=== PATIENT | female | born 1950 | race Caucasian/White ===

== ENCOUNTER 2020-06-22 | Outpatient (REF) | payer MEDICARE, SELFPAY | END 2020-06-22 00:01 | disposition home or self-care (01) | LOC: HO.VC | PROVIDERS: Visit Provider Internal Medicine | DX: Z23 Encounter for immunization (principal) | CPT/HCPCS: 0011A ==

== ENCOUNTER 2020-07-19 | Outpatient (REF) | payer MEDICARE, SELFPAY | END 2020-07-19 00:01 | disposition home or self-care (01) | LOC: HO.VC | PROVIDERS: Visit Provider Internal Medicine | DX: Z23 Encounter for immunization (principal) | CPT/HCPCS: 0012A ==

== ENCOUNTER → 2021-04-10 14:37 | Outpatient (BNVA) | payer MEDICARE, SELFPAY | PROVIDERS: PCP Internal Medicine; Visit Provider Hospitalist | DX: J47.1 Bronchiectasis with (acute) exacerbation (principal); J45.41 Moderate persistent asthma with (acute) exacerbation; J31.0 Chronic rhinitis | CPT/HCPCS: 99212 ==

== ENCOUNTER 2021-07-04 12:54 | Outpatient (REF) | payer MEDICARE, SELFPAY | END 2021-07-04 12:55 | disposition home or self-care (01) | LOC: HO.RESP 12:54 | PROVIDERS: PCP Internal Medicine; Visit Provider Hospitalist | DX: J44.9 Chronic obstructive pulmonary disease, unspecified (principal) | CPT/HCPCS: 94060; 94727; 94729; 99212 ==

== ENCOUNTER → 2021-11-28 14:22 | Outpatient (BNVA) | payer MEDICARE, SELFPAY | PROVIDERS: PCP Internal Medicine; Visit Provider Hospitalist | DX: J47.1 Bronchiectasis with (acute) exacerbation (principal); J45.41 Moderate persistent asthma with (acute) exacerbation; J31.0 Chronic rhinitis; Z79.899 Other long term (current) drug therapy | CPT/HCPCS: 99212 ==

== ENCOUNTER → 2022-02-12 09:21 | Outpatient (BNVA) | payer MEDICARE, SELFPAY | PROVIDERS: PCP Internal Medicine; Visit Provider Hospitalist | DX: J45.41 Moderate persistent asthma with (acute) exacerbation (principal); J47.1 Bronchiectasis with (acute) exacerbation; J31.0 Chronic rhinitis | CPT/HCPCS: 99212 ==

== ENCOUNTER → 2022-11-06 10:43 | Outpatient (BNVA) | payer MEDICARE, SELFPAY | PROVIDERS: PCP Internal Medicine; Visit Provider Hospitalist | DX: J47.1 Bronchiectasis with (acute) exacerbation (principal); J45.41 Moderate persistent asthma with (acute) exacerbation; J31.0 Chronic rhinitis | CPT/HCPCS: 99212 ==

== ENCOUNTER 2023-02-14 15:10 | Outpatient (AMB) | payer MEDICARE, SELFPAY ==
--- NOTE | 2023-02-14 15:13 | A.OFFVIS_ITS ---
Intake Vital Signs 02/14/23 15:14 Weight 117 lb 15.157 oz BP 108/60 Blood Pressure Location Lt brachial Position Sitting Pulse 98 Pulse Source Pulse Oximeter Pulse Oximetry (%) 99 Oxygen Delivery Method Room Air Intake Visit Reasons: chest congestion Allergies amoxicillin Allergy (Severe, Verified 02/14/23 15:17) C.DIFF sulfamethoxazole [Bactrim] Allergy (Severe, Verified 02/14/23 15:17) Shakin trimethoprim [Bactrim] Allergy (Severe, Verified 02/14/23 15:17) Shaking oxycodone Allergy (Intermediate, Verified 02/14/23 15:17) Loopy Medication List - Last Reconciled 02/14/23 by Faiza Fox LPN albuterol sulfate 2.5 mg (3 mL) inhalation Q4-6H PRN 30 days budesonide 0.5 mg (2 mL) inhalation BID 30 days budesonide-formoterol 160-4.5 mcg/actuation (Symbicort) inhalation cetirizine (Zyrtec) 10 mg PO DAILY PRN doxycycline monohydrate 100 mg PO BID 14 days levalbuterol HCl 1.25 mg (3 mL) inhalation BID 30 days levalbuterol tartrate 45 mcg/actuation 2 puffs inhalation Q4-6H nebulizers As directed omeprazole 20 mg PO DAILY prednisone PO daily; Take 2 tabs daily x 5 days, then 1 tablet daily x 5 days 10 days sodium chloride 3% 4 mL inhalation BID 30 days HPI HPI Comments History of Present Illness Details The patient is a 72-year-old woman with a known history of asthma, gastroesophageal reflux disease not complaining worsening cough for the last c ouple weeks. apparently back in the summer she did develop chest discomfort. She was taken to an urgent care where she did have a chest x-ray. and also an EKG. Based on her symptoms she was transferred over to [facility] ED. She was ruled out the patient did well afterwards. Her symptoms subsided she was go back to her baseline. She does take maintenance respiratory medications. She did well until recently when she started developing worsening cough. Congested along with chest tightness. Moderate severity. She continue using her Symbicort but started using her nebulizer therapy at least once a day. His provider partial resolution of the symptoms. Her symptoms were worse at nighttime with heaviness and difficulty sleeping with her cough. The cough she describes is congested and productive. The phlegm is white to off-white in color. Denies any blood. She does get relief from the nebulizer. She also has Mucinex at home. On exam her lungs appeared to some course and prolonged expiratory phase. This is throughout. No clinical evidence of pneumonia at this time. The patient be treated with antibiotics and prednisone and also with [id number] Mucinex. If the patient is not better in the coming days patient is to get blood work, x-ray and also will request a sputum culture. Once the patient is better she will return to the office and undergo pulmonary function studies. 07/04/2021 the patient is here for pulmonary follow-up visit. The patient is feeling better since I last saw her back in March when she was ill with a asthma exacerbation/ Bronchiectasis exacerbation. She did require antibiotics and prednisone. she was supposed to undergo blood work but she did not have them. Patient also had a sputum culture that she could send if she was to productive but she did have 2. she continues with respiratory therapy which includes Symbicort. She has been noticing some difficulties expectorating. She feels this possibly the dryness of her home. We did talk about the importance of pulmonary hygiene and therefore will be reasonable to add hypertonic saline to her regimen prior to the Acapella valve in order to improve her br onchopulmonary clearance. In the meantime she did have pulmonary function studies today that we personally reviewed. It appears that she does have a reversible obstruction consistent with her diagnosis of asthma. When compared to 2019 her FEV1 FVC a very similar. Total lung capacity is trending elevated which could be secondary to a trend of hyperinflation due to the disease. More importantly she did mention some substernal chest pressure buildup. She has had some gases and burping related to it. She did take times and did improve her symptoms. She does take omeprazole 20 mg. I did ask her about her cardiac workup. Apparently a month ago she did have an EKG and she also had an event monitor or Holter monitor. She was given be referred to Cardiology. At this point she does not have the substernal chest discomfort. If she does get discomfort again she needs to seek medical advice just encases the heart. Explained to the patient that is very difficult to differentiate sometimes between the heart in the GI tract. Therefore is reasonable to increase her PPI continue reflux diet. Will be also very reasonable to perform a barium swallow. The patient also should have that cardiology evaluation. 11/28/2021 the patient is here for a pulmonary follow-up visit. Since we last spoke the patient developed COVID-19. The patient after recovering for COVID-19 continue to have significant respiratory complaints. She did require a course of doxycycline and then afterwards was placed on prednisone. She took 20 mg prednisone because higher than that makes it hard for her to breathe. The patient felt a little better initially but then she worsen. She did go to an urgent care where she was tested for COVID again and she tested negative. Her exam was relatively unremarkable. Apparently she did have a chest x-ray that was reassuring. She then was able to follow-up with cardiology regarding her palpitations and ectopy and was found to be relatively stable. No further interventions took place. She was reassured that she felt better. However today again she started feeling worse with increasing shortness of breath in addition to chest congestion and wheezing. Since she had been on the nebulized therapy 2 to 3 times a day she has Doppler Symbicort. Explained to her that Symbicort is very crucial because of the inhaled steroids. It is likely that his symptoms worsen because of the discontinuation of the prednisone and then followed by the fact that she was not using her inhaled steroids. Therefore will go ahead and place her on budesonide via nebulizer since she feels like the nebulizer is more effective for her anyway. She will perform the nebulizer with budesonide twice a day in continue with the Xopenex as well. I am hopeful that the addition of the budesonide will give her some relief. The patient already completed antibiotics and I do not believe she needs additional antibiotics at this time. If she does we can consider azithromycin as a good medication for bronchiectasis and working as an anti-inflammatory agent as well. 02/12/2022 the patient is here for a pulm onary follow-up visit. Overall she is doing a lot better. She is back to her baseline. She stop the nebulized therapies and she is back on the Symbicort. Her cough is decreased. Although she still has productive cough on a regular basis. She has not had any more imaging studies since the winter. Her chest x-ray looked well. The patient still has shortness of breath and chest tightness at times. She does have wheezing on examination. We did talk about adding a long-acting muscarinic antagonist to the Symbicort but the patient would like to hold off at this time. She does continue with her allergy medicine. Will plan to follow-up in 6 months with PFTs. If the patient has worsening symptoms she will call and I will send of the Spiriva. 11/06/2022 the patient is here for a pulm onary follow-up visit. The patient overall is been doing well. She continues on the Symbicort. She has not required her rescue inhaler. She has not required her chest PT because she is not having any significant congestion. She is practicing [facility] medicine and she feels that that acupressure is helping her breathing and also helping with her other conditions. The patient was supposed to have pulmonary function studies but she was sick when she wears scheduled and then did not having. At this time the patient clinically is doing well and therefore will just do a spirometry her during her next visit. We do not have a chest x-ray available so therefore will have her get an x-ray before her follow-up in the spring. If the patient has any issues during the fall we were season she is to call for an appointment. 02/14/2023 the patient is here for a sick visit. Apparently she started developing worsening respiratory symptoms last week. Started having worsening cough in shortness of breath chest tightness. She started using her nebulizer with budesonide and then she also call the office. We started her on doxycycline. The patient started feeling much better after a couple days. She felt like she was back to her baseline. However, suddenly she started noticing again that she was getting more shortness of breath again and more chest congestion. She feels more congestion in the left lung. Also appreciated more rhonchi in chest congestion of the left hemithorax. The patient did go for an a chest x-ray which I personally reviewed. Has not been finally ready yet. She does have some slight blunting of the left recess. But just minimal disease. If anything it appears to be more of her bronchiectasis exacerbating. She has been using her nebulizer which has been helpful. Will go ahead and start her on a small dose of prednisone. If she notices that her sputum changes in color frequency and consistency while on the doxycycline then she can also switch over to Augmentin. Unfortunately she is had C diff in the past and therefore is always a risk. She has been on probiotics. Therefore, she would only go on the Augmentin only if she is feeling like she is getting worse. She can always call the office for further recommendations. While wait the final read if there is any other findings on the x-ray I will let her know. [facility] Medical History (Updated 02/08/23 @ 14:48 by Israel Miranda MD) Asthma-COPD overlap syndrome Chest discomfort GERD (gastroesophageal reflux disease) Chronic rhinitis Asthma Bronchiectasis Social History (Updated 04/10/21 @ 14:51 by NETTE Casarez) Patient Tobacco Use Status: Never used Tobacco Review of Systems Const Denies fever(s) and Denies night sweats ENT Denies change in voice, Denies lip swelling, Denies mouth pain, Reports nasal congestion, Reports nasal discharge and Denies tongue swelling Card Denies chest pain and Reports dyspnea on exertion Resp Reports change in phlegm color, Reports chest congestion, Reports cough, Denies hemoptysis, Denies excessive phlegm production, Reports dyspnea on exertion and Reports wheezing GI Denies belching, Reports dyspepsia and Reports heartburn Musc Denies no additional complaints Neuro Denies Neuro-related abnormal movements Psych Denies no additional complaints and Reports other (greiving) Yassine/Lymph Denies easy bleeding and Denies lymphadenopathy Aller/Immun Denies lip swelling, Denies tongue swelling and Reports wheezing Physical Exam Vital Signs: Last Vital Signs Pulse 98 02/14/23 15:14 BP 108/60 02/14/23 15:14 Pulse Ox 99 02/14/23 15:14 Oxygen Delivery Method Room Air 02/14/23 15:14 Const General: alert Neck Neck: Yes normal visual inspection, Yes full ROM and Yes no lymphadenopathy Chest Chest palpation & inspection: normal inspection of the chest Resp Effort & Inspection: prolonged expiratory phase Auscultation: rhonchi, wheezes and diminished lung sounds Cardio Rate: regular rate Rhythm: regular rhythm Heart sounds: S1 normal heart sound present and S2 normal heart sound present GI Palpation (GI): Soft to palpation and nontender Auscultation: normal bowel sounds Skin General skin exam: rashes and/or lesions noted Assessment & Plan Assessment & Plan (1) Bronchiectasis: Code(s): J47.9 - Bronchiectasis, uncomplicated Qualifiers: Bronchiectasis type: with acute exacerbation Qualified Code(s): J47.1 - Bronchiectasis with (acute) exacerbation (2) Asthma: Code(s): J45.909 - Unspecified asthma, uncomplicated Qualifiers: Asthma complication type: with acute exacerbation Asthma persistence: persistent Asthma severity: moderate Qualified Code(s): J45.41 - Moderate persistent asthma with (acute) exacerbation (3) Chronic rhinitis: Code(s): J31.0 - Chronic rhinitis Plan Continue Doxycycline, if no better switch to Augmentin. 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
[2023-02-14 15:14] VITALS: BP 108/60; PULSE 98; O2SAT 99
== END 2023-02-14 16:05 | disposition home or self-care (01) ==
PROVIDERS: PCP Internal Medicine; Visit Provider Hospitalist
DX: J47.1 Bronchiectasis with (acute) exacerbation (principal); J45.41 Moderate persistent asthma with (acute) exacerbation; J31.0 Chronic rhinitis
CPT/HCPCS: 99214

== ENCOUNTER 2023-02-14 15:10 | Outpatient (REF) | payer MEDICARE, SELFPAY ==
--- NOTE | ~2023-02-14 | XR_ITS ---
EXAMINATION: XR CHEST 2 VIEWS CLINICAL INFORMATION: Bronchiectasis with acute exacerbation. COMPARISON: Report of chest radiographs dated 02/01/2015. TECHNIQUE: Frontal and lateral views of the chest were obtained. FINDINGS: The heart, great vessels, pulmonary vasculature and mediastinum are normal. The lungs show no focal infiltrate, effusion or pneumothorax. There is biapical pleural and parenchymal scarring. There is no acute osseous abnormality. XR/XR chest 2V IMPRESSION: No active cardiopulmonary disease.
== END 2023-02-14 15:11 | disposition home or self-care (01) ==
LOC: HO.XRAY 15:10
PROVIDERS: PCP Internal Medicine; Visit Provider Hospitalist
DX: J47.1 Bronchiectasis with (acute) exacerbation (principal); J45.41 Moderate persistent asthma with (acute) exacerbation; J31.0 Chronic rhinitis
CPT/HCPCS: 71046; 99212

== ENCOUNTER 2023-07-24 10:56 | Outpatient (AMB) | payer MEDICARE, SELFPAY ==
[2023-07-24 11:14] VITALS: BP 128/60; PULSE 86; O2SAT 99; BMI 18.9
--- NOTE | 2023-07-24 11:14 | MHC.OFFVIS ---
Intake Vital Signs 07/24/23 11:14 Height 5 ft 6 in Weight 117 lb BMI 18.9 BP 128/60 Blood Pressure Location Lt brachial Position Sitting Pulse 86 Pulse Source Pulse Oximeter Pulse Oximetry (%) 99 Oxygen Delivery Method Room Air Intake Visit Reasons: COPD Electro Tech Required: No Allergies amoxicillin Allergy (Severe, Verified 07/24/23 11:16) C.DIFF sulfamethoxazole [Bactrim] Allergy (Severe, Verified 07/24/23 11:16) Shakin trimethoprim [Bactrim] Allergy (Severe, Verified 07/24/23 11:16) Shaking oxycodone Allergy (Intermediate, Verified 07/24/23 11:16) Loopy HPI HPI Comments History of Present Illness Details The patient is a 72-year-old woman with a known history of asthma, gastroesophageal reflux disease not complaining worsening cough for the last couple weeks. apparently back in the summer she did develop chest discomfort. She was taken to an urgent care where she did have a chest x-ray. and also an EKG. Based on her symptoms she was transferred over to [facility] ED. She was ruled out the patient did well afterwards. Her symptoms subsided she was go back to her baseline. She does take maintenance respiratory medications. She did well until recently when she started developing worsening cough. Congested along with chest tightness. Moderate severity. She continue using her Symbicort but started using her nebulizer therapy at least once a day. His provider partial resolution of the symptoms. Her symptoms were worse at nighttime with heaviness and difficulty sleeping with her cough. The cough she describes is congested and productive. The phlegm is white to off-white in color. Denies any blood. She does get relief from the nebulizer. She also has Mucinex at home. On exam her lungs appeared to some course and prolonged expiratory phase. This is throughout. No clinical evidence of pneumonia at this time. The patient be treated with antibiotics and prednisone and also with [id number] Mucinex. If the patient is not better in the coming days patient is to get blood work, x-ray and also will request a sputum culture. Once the patient is better she will return to the office and undergo pulmonary function studies. 07/04/2021 the patient is here for pulmonary follow-up visit. The patient is feeling better since I last saw her back in March when she was ill with a asthma exacerbation/ Bronchiectasis exacerbation. She did require antibiotics and prednisone. she was supposed to undergo blood work but she did not have them. Patient also had a sputum culture that she could send if she was to productive but she did have 2. she continues with respiratory therapy which includes Symbicort. She has been noticing some difficulties expectorating. She feels this possibly the dryness of her home. We did talk about the importance of pulmonary hygiene and therefore will be reasonable to add hypertonic saline to her regimen prior to the Acapella valve in order to improve her bronchopulmonary clearance. In the meantime she did have pulmonary function studies today that we personally reviewed. It appears that she does have a reversible obstruction consistent with her diagnosis of asthma. When compared to 2019 her FEV1 FVC a very similar. Total lung capacity is trending elevated which could be secondary to a trend of hyperinflation due to the disease. More importantly she did mention some substernal chest pressure buildup. She has had some gases and burping related to it. She did take times and did improve her symptoms. She does take omeprazole 20 mg. I did ask her about her cardiac workup. Apparently a month ago she did have an EKG and she also had an event monitor or Holter monitor. She was given be referred to Cardiology. At this point she does not have the substernal chest discomfort. If she does get discomfort again she needs to seek medical advice just encases the heart. Explained to the patient that is very difficult to differentiate sometimes between the heart in the GI tract. Therefore is reasonable to increase her PPI continue reflux diet. Will be also very reasonable to perform a barium swallow. The patient also should have that cardiology evaluation. 11/28/2021 the patient is here for a pulmonary follow-up visit. Since we last spoke the patient developed COVID-19. The patient after recovering for COVID-19 continue to have significant respiratory complaints. She did require a course of doxycycline and then afterwards was placed on prednisone. She took 20 mg prednisone because higher than that makes it hard for her to breathe. The patient felt a little better initially but then she worsen. She did go to an urgent care where she was tested for COVID again and she tested negative. Her exam was relatively unremarkable. Apparently she did have a chest x-ray that was reassuring. She then was able to follow-up with cardiology regarding her palpitations and ectopy and was found to be relatively stable. No further interventions took place. She was reassured that she felt better. However today again she started feeling worse with increasing shortness of breath in addition to chest congestion and wheezing. Since she had been on the nebulized therapy 2 to 3 times a day she has Doppler Symbicort. Explained to her that Symbicort is very crucial because of the inhaled steroids. It is likely that his symptoms worsen because of the discontinuation of the prednisone and then followed by the fact that she was not using her inhaled steroids. Therefore will go ahead and place her on budesonide via nebulizer since she feels like the nebulizer is more effective for her anyway. She will perform the nebulizer with budesonide twice a day in continue with the Xopenex as well. I am hopeful that the addition of the budesonide will give her some relief. The patient already completed antibiotics and I do not believe she needs additional antibiotics at this time. If she does we can consider azithromycin as a good medication for bronchiectasis and working as an anti-inflammatory agent as well. 02/12/2022 the patient is here for a pulmonary follow-up visit. Overall she is doing a lot better. She is back to her baseline. She stop the nebulized therapies and she is back on the Symbicort. Her cough is decreased. Although she still has productive cough on a regular basis. She has not had any more imaging studies since the winter. Her chest x-ray looked well. The patient still has shortness of breath and chest tightness at times. She does have wheezing on examination. We did talk about adding a long-acting muscarinic antagonist to the Symbicort but the patient would like to hold off at this time. She does continue with her allergy medicine. Will plan to follow-up in 6 months with PFTs. If the patient has worsening symptoms she will call and I will send of the Spiriva. 11/06/2022 the patient is here for a pulmonary follow-up visit. The patient overall is been doing well. She continues on the Symbicort. She has not required her rescue inhaler. She has not required her chest PT because she is not having any significant congestion. She is practicing [employer] and she feels that that acupressure is helping her breathing and also helping with her other conditions. The patient was supposed to have pulmonary function studies but she was sick when she wears scheduled and then did not having. At this time the patient clinically is doing well and therefore will just do a spirometry her during her next visit. We do not have a chest x-ray available so therefore will have her get an x-ray before her follow-up in the spring. If the patient has any issues during the fall we were season she is to call for an appointment. 02/14/2023 the patient is here for a sick visit. Apparently she started developing worsening respiratory symptoms last week. Started having worsening cough in shortness of breath chest tightness. She started using her nebulizer with budesonide and then she also call the office. We started her on doxycycline. The patient started feeling much better after a couple days. She felt like she was back to her baseline. However, suddenly she started noticing again that she was getting more shortness of breath again and more chest congestion. She feels more congestion in the left lung. Also appreciated more rhonchi in chest congestion of the left hemithorax. The patient did go for an a chest x-ray which I personally reviewed. Has not been finally ready yet. She does have some slight blunting of the left recess. But just minimal disease. If anything it appears to be more of her bronchiectasis exacerbating. She has been using her nebulizer which has been helpful. Will go ahead and start her on a small dose of prednisone. If she notices that her sputum changes in color frequency and consistency while on the doxycycline then she can also switch over to Augmentin. Unfortunately she is had C diff in the past and therefore is always a risk. She has been on probiotics. Therefore, she would only go on the Augmentin only if she is feeling like she is getting worse. She can always call the office for further recommendations. While wait the final read if there is any other findings on the x-ray I will let her know. 07/24/2023 the patient is here for a pulmonary follow-up visit. The patient overall has been doing well. She has using a mask whenever she goes to avoid any viral illnesses that tend to trigger her asthma and bronchiectasis. She continues to use her Symbicort that he has been very effective in beneficial to her. The patient has tried multiple inhalers in the past included powdered inhalers such as Breo and she did not tolerate the powder. Now, Symbicort is no longer being covered. Therefore will switch her to Dulera based on the fact that is still an HFA and should be very similar to the Symbicort. However, I do not recommend she switch over to a powdered inhalers and she has not tolerated them in the past and resulted in adverse symptoms. So therefore will have to send the Dulera hopefully gets approved if not will have to perform a PA. the patient has not had any significant symptoms. We did look at her x-ray that she had back in January 2023 without any acute disease although she does have some hyperinflation of the lungs. She does walk regularly. We did talk about personally breathing and just breathing exercises to help her with the air trapping hyperdynamic changes. The patient will return in 6-8 months. If she has any worsening symptoms she will call for an earlier assessment. No x-rays or PFTs at this time. FORMERLY [facility], [facility] Medical History (Updated 02/08/23 @ 14:48 by Israel Miranda MD) Asthma-COPD overlap syndrome Chest discomfort GERD (gastroesophageal reflux disease) Chronic rhinitis Asthma Bronchiectasis Social History (Updated 04/10/21 @ 14:51 by Sarah Juan Karen) Patient Tobacco Use Status: Never used Tobacco Review of Systems Const Denies fever(s) and Denies night sweats ENT Denies change in voice, Denies lip swelling, Denies mouth pain, Reports nasal congestion, Reports nasal discharge and Denies tongue swelling Card Denies chest pain and Reports dyspnea on exertion Resp Denies change in phlegm color, Denies chest congestion, Reports cough, Denies hemoptysis, Denies excessive phlegm production and Reports dyspnea on exertion GI Denies belching, Reports dyspepsia and Reports heartburn Musc Denies no additional complaints Neuro Denies Neuro-related abnormal movements Psych Denies no additional complaints and Reports other (greiving) Yassine/Lymph Denies easy bleeding and Denies lymphadenopathy Aller/Immun Denies lip swelling and Denies tongue swelling Physical Exam Vital Signs: Last Vital Signs Pulse 86 07/24/23 11:14 BP 128/60 07/24/23 11:14 Pulse Ox 99 07/24/23 11:14 Oxygen Delivery Method Room Air 07/24/23 11:14 BMI result Body Mass Index 18.9 Const General: alert Neck Neck: Yes normal visual inspection, Yes full ROM and Yes no lymphadenopathy Chest Chest palpation & inspection: normal inspection of the chest Resp Effort & Inspection: prolonged expiratory phase Auscultation: no rhonchi, no wheezes and diminished lung sounds Cardio Rate: regular rate Rhythm: regular rhythm Heart sounds: S1 normal heart sound present and S2 normal heart sound present GI Palpation (GI): Soft to palpation and nontender Auscultation: normal bowel sounds Skin General skin exam: rashes and/or lesions noted Extrem General: Yes no clubbing, cyanosis or edema Assessment & Plan Assessment & Plan (1) Bronchiectasis: Code(s): J47.9 - Bronchiectasis, uncomplicated Qualifiers: Bronchiectasis type: with acute exacerbation Qualified Code(s): J47.1 - Bronchiectasis with (acute) exacerbation (2) Asthma: Code(s): J45.909 - Unspecified asthma, uncomplicated Qualifiers: Asthma complication type: with acute exacerbation Asthma persistence: persistent Asthma severity: moderate Qualified Code(s): J45.41 - Moderate persistent asthma with (acute) exacerbation (3) Chronic rhinitis: Code(s): J31.0 - Chronic rhinitis Plan insurance not covering Symbicort BID, will send Dulera. She does not tolerate powdered inhalers due to adverse effects stop Budesonide for now Continue Xopenex as needed Hypertonic saline 3% for CPT CPT with acapella valve CXR Fall 2022 with no acute disease Follow-up in 6 months Medications: New mometasone-formoterol 200-5 mcg/actuation (Dulera) 2 puffs inhalation Q12H 30 days 13 grams 11RF Coding Level of Care Code Est Pt Level 4 (41732) Diagnoses Bronchiectasis with acute exacerbation J47.1 Bronchiectasis type: with acute exacerbation Moderate persistent asthma with acute exacerbation J45.41 Asthma complication type: with acute exacerbation Asthma persistence: persistent Asthma severity: moderate Chronic rhinitis J31.0 Time Spent (min) 17
== END 2023-07-24 11:45 | disposition home or self-care (01) ==
PROVIDERS: PCP Internal Medicine; Visit Provider Hospitalist
DX: J47.1 Bronchiectasis with (acute) exacerbation (principal); J45.41 Moderate persistent asthma with (acute) exacerbation; J31.0 Chronic rhinitis
CPT/HCPCS: 99214

== ENCOUNTER → 2023-07-24 10:56 | Outpatient (BNVA) | payer MEDICARE, SELFPAY | PROVIDERS: PCP Internal Medicine; Visit Provider Hospitalist | DX: J47.1 Bronchiectasis with (acute) exacerbation (principal); J45.41 Moderate persistent asthma with (acute) exacerbation; J31.0 Chronic rhinitis | CPT/HCPCS: 99212 ==

== ENCOUNTER 2024-02-13 13:15 | Outpatient (AMB) | payer MEDICARE, SELFPAY ==
[2024-02-13 13:27] VITALS: BP 134/62; PULSE 91; O2SAT 99; BMI 19.9
--- NOTE | 2024-02-13 13:27 | A.OFFVIS_ITS ---
Vital Signs 02/13/24 13:27 Height 5 ft 6 in Weight 123 lb BMI 19.9 BP 134/62 Blood Pressure Location Rt brachial Position Sitting Pulse 91 Pulse Source Pulse Oximeter Pulse Oximetry (%) 99 Oxygen Delivery Method Room Air Intake Visit Reasons: COPD Laboratory Equipment Cleaner Required: No Allergies amoxicillin Allergy (Severe, Verified 02/13/24 13:30) C.DIFF sulfamethoxazole [Bactrim] Allergy (Severe, Verified 02/13/24 13:30) Shakin trimethoprim [Bactrim] Allergy (Severe, Verified 02/13/24 13:30) Shaking oxycodone Allergy (Intermediate, Verified 02/13/24 13:30) Loopy HPI Comments Details: The patient is a 73-year-old woman with a known history of asthma, gastroesophageal reflux disease not complaining worsening cough for the last couple weeks. apparently back in the summer she did develop chest discomfort. She was taken to an urgent care where she did have a chest x-ray. and also an EKG. Based on her symptoms she was transferred over to [facility] ED. She was ruled out the patient did well afterwards. Her symptoms subsided she was go back to her baseline. She does take maintenance respiratory medications. She did well until recently when she started developing worsening cough. Congested along with chest tightness. Moderate severity. She continue using her Symbicort but started using her nebulizer therapy at least once a day. His provider partial resolution of the symptoms. Her symptoms were worse at nighttime with heaviness and difficulty sleeping with her cough. The cough she describes is congested and productive. The phlegm is white to off-white in color. Denies any blood. She does get relief from the nebulizer. She also has Mucinex at home. On exam her lungs appeared to some course and prolonged expiratory phase. This is throughout. No clinical evidence of pneumonia at this time. The patient be treated with antibiotics and prednisone and also with [id number] Mucinex. If the patient is not better in the coming days patient is to get blood work, x-ray and also will request a sputum culture. Once the patient is better she will return to the office and undergo pulmonary function studies. 07/04/2021 the patient is here for pulmonary follow-up visit. The patient is feeling better since I last saw her back in March when she was ill with a asthma exacerbation/ Bronchiectasis exacerbation. She did require antibiotics and prednisone. she was supposed to undergo blood work but she did not have them. Patient also had a sputum culture that she could send if she was to productive but she did have 2. she continues with respiratory therapy which includes Symbicort. She has been noticing some difficulties expectorating. She feels this possibly the dryness of her home. We did talk about the importance of pulmonary hygiene and therefore will be reasonable to add hypertonic saline to her regimen prior to the Acapella valve in order to improve her bronchopulmonary clearance. In the meantime she did have pulmonary function studies today that we personally reviewed. It appears that she does have a reversible obstruction consistent with her diagnosis of asthma. When compared to 2019 her FEV1 FVC a very similar. Total lung capacity is trending elevated which could be secondary to a trend of hyperinflation due to the disease. More importantly she did mention some substernal chest pressure buildup. She has had some gases and burping related to it. She did take times and did improve her symptoms. She does take omeprazole 20 mg. I did ask her about her cardiac workup. Apparently a month ago she did have an EKG and she also had an event monitor or Holter monitor. She was given be referred to Cardiology. At this point she does not have the substernal chest discomfort. If she does get discomfort again she needs to seek medical advice just encases the heart. Explained to the patient that is very difficult to differentiate sometimes between the heart in the GI tract. Therefore is reasonable to increase her PPI continue reflux diet. Will be also very reasonable to perform a barium swallow. The patient also should have that cardiology evaluation. 11/28/2021 the patient is here for a pulmonary follow-up visit. Since we last spoke the patient developed COVID-19. The patient after recovering for COVID-19 continue to have significant respiratory complaints. She did require a course of doxycycline and then afterwards was placed on prednisone. She took 20 mg prednisone because higher than that makes it hard for her to breathe. The patient felt a little better initially but then she worsen. She did go to an urgent care where she was tested for COVID again and she tested negative. Her exam was relatively unremarkable. Apparently she did have a chest x-ray that was reassuring. She then was able to follow-up with cardiology regarding her palpitations and ectopy and was found to be relatively stable. No further interventions took place. She was reassured that she felt better. However today again she started feeling worse with increasing shortness of breath in addition to chest congestion and wheezing. Since she had been on the nebulized therapy 2 to 3 times a day she has Doppler Symbicort. Explained to her that Symbicort is very crucial because of the inhaled steroids. It is likely that his symptoms worsen because of the discontinuation of the prednisone and then followed by the fact that she was not using her inhaled steroids. Therefore will go ahead and place her on budesonide via nebulizer since she feels like the nebulizer is more effective for her anyway. She will perform the nebulizer with budesonide twice a day in continue with the Xopenex as well. I am hopeful that the addition of the budesonide will give her some relief. The patient already completed antibiotics and I do not believe she needs additional antibiotics at this time. If she does we can consider azithromycin as a good medication for bronchiectasis and working as an anti-inflammatory agent as well. 02/12/2022 the patient is here for a pulmonary follow-up visit. Overall she is doing a lot better. She is back to her baseline. She stop the nebulized therapies and she is back on the Symbicort. Her cough is decreased. Although she still has productive cough on a regular basis. She has not had any more imaging studies since the winter. Her chest x-ray looked well. The patient still has shortness of breath and chest tightness at times. She does have wheezing on examination. We did talk about adding a long-acting muscarinic antagonist to the Symbicort but the patient would like to hold off at this time. She does continue with her allergy medicine. Will plan to follow-up in 6 months with PFTs. If the patient has worsening symptoms she will call and I will send of the Spiriva. 11/06/2022 the patient is here for a pulmonary follow-up visit. The patient overall is been doing well. She continues on the Symbicort. She has not required her rescue inhaler. She has not required her chest PT because she is not having any significant congestion. She is practicing Easter medicine and she feels that that acupressure is helping her breathing and also helping with her other conditions. The patient was supposed to have pulmonary function studies but she was sick when she wears scheduled and then did not having. At this time the patient clinically is doing well and therefore will just do a spirometry her during her next visit. We do not have a chest x-ray available so therefore will have her get an x-ray before her follow-up in the spring. If the patient has any issues during the fall we were season she is to call for an appointment. 02/14/2023 the patient is here for a sick visit. Apparently she started developing worsening respiratory symptoms last week. Started having worsening cough in shortness of breath chest tightness. She started using her nebulizer with budesonide and then she also call the office. We started her on doxycycline. The patient started feeling much better after a couple days. She felt like she was back to her baseline. However, suddenly she started noticing again that she was getting more shortness of breath again and more chest congestion. She feels more congestion in the left lung. Also appreciated more rhonchi in chest congestion of the left hemithorax. The patient did go for an a chest x-ray which I personally reviewed. Has not been finally ready yet. She does have some slight blunting of the left recess. But just minimal disease. If anything it appears to be more of her bronchiectasis exacerbating. She has been using her nebulizer which has been helpful. Will go ahead and start her on a small dose of prednisone. If she notices that her sputum changes in color frequency and consistency while on the doxycycline then she can also switch over to Augmentin. Unfortunately she is had C diff in the past and therefore is always a risk. She has been on probiotics. Therefore, she would only go on the Augmentin only if she is feeling like she is getting worse. She can always call the office for further recommendations. While wait the final read if there is any other findings on the x-ray I will let her know. 07/24/2023 the patient is here for a pulmonary follow-up visit. The patient overall has been doing well. She has using a mask whenever she goes to avoid any viral illnesses that tend to trigger her asthma and bronchiectasis. She continues to use her Symbicort that he has been very effective in beneficial to her. The patient has tried multiple inhalers in the past included powdered inhalers such as Breo and she did not tolerate the powder. Now, Symbicort is no longer being covered. Therefore will switch her to Dulera based on the fact that is still an HFA and should be very similar to the Symbicort. However, I do not recommend she switch over to a powdered inhalers and she has not tolerated them in the past and resulted in adverse symptoms. So therefore will have to send the Dulera hopefully gets approved if not will have to perform a PA. the patient has not had any significant symptoms. We did look at her x-ray that she had back in January 2023 without any acute disease although she does have some hyperinflation of the lungs. She does walk regularly. We did talk about personally breathing and just breathing exercises to help her with the air trapping hyperdynamic changes. The patient will return in 6-8 months. If she has any worsening symptoms she will call for an earlier assessment. No x-rays or PFTs at this time. 02/13/2024 the patient is here for a pulmonary follow-up visit. The patient overall has been doing better. She did have COVID back in December. After she did develop a postviral bacterial infection and did require some doxycycline. She also took a course of prednisone. She had also started the nebulizer treatments. Now she is back to her baseline. She did have some difficulty with some inhalers that were change. Initially her Symbicort was switched over to a powdered inhaler that she not tolerate. Then she was switched over to Dulera per coverage for mL. She could not tolerate that either. Therefore now she is back on Symbicort and she is doing just fine. She has been able to cut down a little bit because she gets a little tremulous now with Symbicort as well. We did review her last chest x-ray that was back in 02/06/2023. She did have some apical scarring. Will plan to repeat that x-ray when able. Otherwise patient will continue her current respiratory therapy. She continues to walk regularly. She is working on deep breathing exercises. I did encourage her to use her Ac apella valve balloon more regularly however. She will follow-up in 6 months or sooner if she develops any worsening issues. [facility] Medical History (Updated 02/08/23 @ 14:48 by Israel Miranda MD) Asthma-COPD overlap syndrome Chest discomfort GERD (gastroesophageal reflux disease) Chronic rhinitis Asthma Bronchiectasis Social History Patient Tobacco Use Status: Never used Tobacco Review of Systems Const Denies fever(s) and Denies night sweats ENT Denies change in voice, Denies lip swelling, Denies mouth pain, Reports nasal congestion, Reports nasal discharge and Denies tongue swelling Card Denies chest pain Resp Denies change in phlegm color, Denies chest congestion, Reports cough, Denies hemoptysis and Denies excessive phlegm production GI Denies belching, Reports dyspepsia and Reports heartburn Musc Denies no additional complaints Neuro Denies Neuro-related abnormal movements Psych Denies no additional complaints and Reports other (greiving) Yassine/Lymph Denies easy bleeding and Denies lymphadenopathy Aller/Immun Denies lip swelling and Denies tongue swelling Physical Exam Vital Signs: Last Vital Signs Pulse 91 02/13/24 13:27 BP 134/62 02/13/24 13:27 Pulse Ox 99 02/13/24 13:27 Oxygen Delivery Method Room Air 02/13/24 13:27 BMI result Body Mass Index 19.9 Const General: alert Neck Neck: Yes normal visual inspection, Yes full ROM and Yes no lymphadenopathy Chest Chest palpation & inspection: normal inspection of the chest Resp Effort & Inspection: normal respiratory effort and prolonged expiratory phase Auscultation: no rhonchi, no wheezes and diminished lung sounds Cardio Rate: regular rate Rhythm: regular rhythm Heart sounds: S1 normal heart sound present and S2 normal heart sound present GI Palpation (GI): Soft to palpation and nontender Auscultation: normal bowel sounds Skin General skin exam: rashes and/or lesions noted Extrem General: Yes no clubbing, cyanosis or edema Assessment & Plan Assessment & Plan (1) Bronchiectasis: Code(s): J47.9 - Bronchiectasis, uncomplicated Category: Medical Qualifiers: Bronchiectasis type: with acute exacerbation Qualified Code(s): J47.1 - Bronchiectasis with (acute) exacerbation (2) Asthma: Code(s): J45.909 - Unspecified asthma, uncomplicated Category: Medical Qualifiers: Asthma complication type: with acute exacerbation Asthma persistence: persistent Asthma severity: moderate Qualified Code(s): J45.41 - Moderate persistent asthma with (acute) exacerbation (3) Chronic rhinitis: Code(s): J31.0 - Chronic rhinitis Category: Medical (4) Asthma-COPD overlap syndrome: Code(s): J44.9 - Chronic obstructive pulmonary disease, unspecified Category: Medical Plan continue Symbicort BID Did not tolerate powdered inhalers nor dulera stopped Budesonide Continue Xopenex as needed did not tolerate Hypertonic saline 3% for CPT CPT with acapella valve CXR Follow-up in 6 months Orders: Orders XR chest 2V Today J44.9 - Chronic obstructive pulmonary disease, unspecified Coding Level of Care Code Est Pt Level 4 (79895) Complex EM visit Add On G2211 Diagnoses Bronchiectasis with acute exacerbation J47.1 Bronchiectasis type: with acute exacerbation Moderate persistent asthma with acute exacerbation J45.41 Asthma complication type: with acute exacerbation Asthma persistence: persistent Asthma severity: moderate Chronic rhinitis J31.0 Asthma-COPD overlap syndrome J44.9 Time Spent (min) 17
== END 2024-02-13 13:50 | disposition home or self-care (01) ==
PROVIDERS: PCP Internal Medicine; Visit Provider Hospitalist
DX: J47.1 Bronchiectasis with (acute) exacerbation (principal); J45.41 Moderate persistent asthma with (acute) exacerbation; J31.0 Chronic rhinitis; J44.9 Chronic obstructive pulmonary disease, unspecified
CPT/HCPCS: 99214; G2211

== ENCOUNTER → 2024-02-13 13:15 | Outpatient (BNVA) | payer MEDICARE, SELFPAY | PROVIDERS: PCP Internal Medicine; Visit Provider Hospitalist | DX: J44.9 Chronic obstructive pulmonary disease, unspecified (principal); J47.1 Bronchiectasis with (acute) exacerbation; J31.0 Chronic rhinitis; J45.41 Moderate persistent asthma with (acute) exacerbation | CPT/HCPCS: 99212 ==

== ENCOUNTER 2024-03-17 13:21 | Outpatient (AMB) | payer MEDICARE, SELFPAY ==
--- NOTE | 2024-03-17 13:29 | A.OFFVIS_ITS ---
Vital Signs 03/17/24 13:30 Height 5 ft 6 in Weight 124 lb 8 oz BMI 20.1 BP 122/60 Blood Pressure Location Lt brachial Position Sitting Pulse 80 Pulse Source Pulse Oximeter Pulse Oximetry (%) 100 Oxygen Delivery Method Room Air Intake Visit Reasons: Cough prod white mucus Allergies amoxicillin Allergy (Severe, Verified 03/17/24 13:32) C.DIFF sulfamethoxazole [Bactrim] Allergy (Severe, Verified 03/17/24 13:32) Shakin trimethoprim [Bactrim] Allergy (Severe, Verified 03/17/24 13:32) Shaking oxycodone Allergy (Intermediate, Verified 03/17/24 13:32) Loopy HPI HPI Cough prod white mucus: Details: Radha is a pleasant 73 year old female, never smoker, with underlying asthma COPD overlap, bronchiectasis, GERD and allergic rhinitis. She is well controlled on Symbicort, levalbuterol and budesonide PRN. She is under the care of Dr. Miranda and presents today for an acute visit. She reports increasing productive cough with white sputum with associated sneezing and nasal congestion since last week. She has been using budesonide BID for the last few days as well as doxycyline after recent dental surgery. She was feeling better on doxycyline however completed prescription yesterday. Denies fevers chills or sick contacts. COUNTS INCLUDE 234 BEDS AT THE [facility] Medical History (Updated 02/08/23 @ 14:48 by Israel Miranda MD) Asthma-COPD overlap syndrome Chest discomfort GERD (gastroesophageal reflux disease) Chronic rhinitis Asthma Bronchiectasis Social History Patient Tobacco Use Status: Never used Tobacco Review of Systems Const Denies chills, Denies excessive sweating, Denies fever(s), Denies headache(s) and Denies night sweats Eyes Denies dry eyes, Denies irritation and Denies itchy eyes ENT Reports Normal hearing present, Denies headache(s), Denies nasal congestion, Denies nasal discharge, Denies post nasal drip and Denies sore throat Card Denies chest pain, Denies chest pain at rest, Denies chest pain with activity, Denies claudication, Denies leg edema, Denies dyspnea, Denies dyspnea on exertion, Denies orthopnea and Denies paroxysmal nocturnal dyspnea Resp Denies pain on inspiration, Denies pain with cough, Denies dyspnea, Denies dyspnea on exertion, Denies stridor and Denies wheezing Musc Denies myalgias Neuro Reports Normal hearing present and Denies headache(s) Endo Denies excessive sweating Yassine/Lymph Denies lymphadenopathy Aller/Immun Denies itchy eyes, Denies seasonal rhinorrhea and Denies wheezing Physical Exam Vital Signs: Last Vital Signs Pulse 80 03/17/24 13:30 BP 122/60 03/17/24 13:30 Pulse Ox 100 03/17/24 13:30 Oxygen Delivery Method Room Air 03/17/24 13:30 BMI result Body Mass Index 20.1 Const General: cooperative, healthy appearing, comfortable, no acute distress, well developed and alert Orientation/consciousness: patient oriented x3 Limitations: no limitations HEENT Head: Yes normal to inspection, Yes normocephalic and Yes atraumatic Ears: hearing grossly normal bilaterally and external ears normal Eyes General: appearance normal, both eyes and all related structures Eyelids: Yes eyelids normal Sclerae: sclerae normal EOM: EOMs intact bilaterally Neck Neck: Yes normal visual inspection and Yes no lymphadenopathy Lymphatic: no lymphadenopathy noted Chest Chest palpation & inspection: normal inspection of the chest Resp Effort & Inspection: normal respiratory effort, able to speak in complete sentences, no audible wheezes, no cough, no stridor, not tachypneic, no tripod positioning and no use of accessory muscles Auscultation: clear to auscultation bilaterally Cardio Jugular venous distension: no JVD Rate: regular rate Rhythm: regular rhythm Skin Other: warm, dry General skin exam: no rashes or lesions noted Neuro General: patient oriented x3 Cranial nerves: Yes Normal hearing present Cognition (Neuro): normal cognition Gait exam (Neuro): Normal gait present Extrem General: Yes normal to inspection, Yes capillary refill normal, Yes no clubbing, cyanosis or edema and Yes no pedal edema Psych Appearance: grossly normal and well kempt Speech and movement: Normal speech and movement present and Clear speech present Affect: normal affect Attitude: cooperative Thought process: Normal thought process present Thought content: Normal thought content present Insight: Good insight present (Psych) Judgement: Good judgement present (Psych) Assessment & Plan Assessment & Plan (1) Asthma-COPD overlap syndrome: Code(s): J44.9 - Chronic obstructive pulmonary disease, unspecified Category: Medical (2) Bronchiectasis: Code(s): J47.9 - Bronchiectasis, uncomplicated Category: Medical Qualifiers: Bronchiectasis type: with acute exacerbation Qualified Code(s): J47.1 - Bronchiectasis with (acute) exacerbation Plan Will extend doxycyline for a total of 14 days for bronchitic symptoms. Encou raged use of budesonide BID for the next week to avoid oral prednisone as well as mucinex and acapella valve. If symptoms persist will obtain CXR. All questions were answered and patient is in agreement of plan. Will follow up for regularly scheduled appointment with Dr. Miranda or sooner if needed. Medications: Changed From doxycycline monohydrate 100 mg PO BID 14 days 28 tabs 0RF To doxycycline monohydrate 100 mg PO BID 14 tabs 0RF 7 days Coding Level of Care Code Est Pt Level 4 (20224) Diagnoses Asthma-COPD overlap syndrome J44.9 Bronchiectasis with acute exacerbation J47.1 Bronchiectasis type: with acute exacerbation
[2024-03-17 13:30] VITALS: BP 122/60; PULSE 80; O2SAT 100; BMI 20.1
== END 2024-03-17 14:04 | disposition home or self-care (01) ==
LOC: HO.HPSW 13:21
PROVIDERS: PCP Internal Medicine; Visit Provider Nurse Practitioner Family
DX: J44.9 Chronic obstructive pulmonary disease, unspecified (principal); J47.1 Bronchiectasis with (acute) exacerbation
CPT/HCPCS: 99214

== ENCOUNTER → 2024-03-17 13:21 | Outpatient (BNVA) | payer MEDICARE, SELFPAY | PROVIDERS: PCP Internal Medicine; Visit Provider Nurse Practitioner Family | DX: J44.9 Chronic obstructive pulmonary disease, unspecified (principal); J47.1 Bronchiectasis with (acute) exacerbation | CPT/HCPCS: 99212 ==

== ENCOUNTER → 2024-03-30 09:55 | Outpatient (BNVA) | payer MEDICARE, SELFPAY | PROVIDERS: PCP Internal Medicine; Visit Provider Hospitalist | DX: J45.41 Moderate persistent asthma with (acute) exacerbation (principal); J47.1 Bronchiectasis with (acute) exacerbation; J44.9 Chronic obstructive pulmonary disease, unspecified; J31.0 Chronic rhinitis; J04.2 Acute laryngotracheitis | CPT/HCPCS: 99212 ==

== ENCOUNTER 2024-05-27 08:50 | Outpatient (AMB) | payer MEDICARE, SELFPAY ==
--- NOTE | 2024-05-27 08:51 | MHC.OFFVIS ---
Vital Signs 05/27/24 08:54 Height 5 ft 6 in Weight 124 lb BMI 20.0 BP 132/64 Blood Pressure Location Rt brachial Position Sitting Pulse 82 Pulse Source Pulse Oximeter Pulse Oximetry (%) 98 Oxygen Delivery Method Room Air Intake Visit Reasons: cough, chest congestion Public Relations Associate Required: No Labor Relations Or Personnel Negotiator: Labor Relations Or Personnel Negotiator offered & declined Accompanied by: Self / Same As Patient Allergies amoxicillin Allergy (Severe, Verified 05/27/24 09:00) C.DIFF sulfamethoxazole [Bactrim] Allergy (Severe, Verified 05/27/24 09:00) Shakin trimethoprim [Bactrim] Allergy (Severe, Verified 05/27/24 09:00) Shaking oxycodone Allergy (Intermediate, Verified 05/27/24 09:00) Loopy Medication List - Last Reconciled 05/27/24 by Jo Scott LPN budesonide 0.5 mg (2 mL) inhalation BID 30 days budesonide-formoterol 160-4.5 mcg/actuation (Symbicort) 2 puffs inhalation Q12H 30 days cetirizine (Zyrtec) 10 mg PO DAILY PRN levalbuterol HCl 1.25 mg (3 mL) inhalation BID 30 days levalbuterol tartrate 45 mcg/actuation 2 puffs inhalation Q6H PRN 30 days nebulizers As directed omeprazole 20 mg PO DAILY HPI HPI cough, chest congestion: Details: Radha is a pleasant 73 year old female, never smoker, with underlying asthma COPD overlap, bronchiectasis, GERD and allergic rhinitis. At baseline she is well controlled on Symbicort, levalbuterol and budesonide PRN. She is under the care of Dr. Miranda and presents today for an acute visit. Patient is very vague in regards to symptoms. She called the office on 05/22 for productive cough and chest congestion that started at the end of April. She was treated with azithromycin 500 mg x 5 days as well as a medrol dose pack and had improvements initially. Unfortunately, she continues with mostly nonproductive cough with difficulty expectorating and associated chest congestion. When she does expectorate, mucous is white. Denies fever, chills or sick contacts. She has been using mucinex and using levalbuterol BID, Budesonide QD. [facility], [facility] Medical History (Updated 05/27/24 @ 09:24 by Bibiana Kwok NP) Laryngotracheitis Asthma-COPD overlap syndrome Chest discomfort GERD (gastroesophageal reflux disease) Chronic rhinitis Asthma Bronchiectasis Social History Patient Tobacco Use Status: Never used Tobacco Review of Systems Const Denies chills, Denies excessive sweating, Denies fever(s), Denies headache(s) and Denies night sweats Eyes Denies dry eyes, Denies irritation and Denies itchy eyes ENT Reports Normal hearing present, Denies headache(s), Denies nasal congestion, Denies nasal discharge, Denies post nasal drip and Denies sore throat Card Denies chest pain, Denies chest pain at rest, Denies chest pain with activity, Denies claudication, Denies leg edema, Denies dyspnea, Denies dyspnea on exertion, Denies orthopnea and Denies paroxysmal nocturnal dyspnea Resp Denies excessive phlegm production, Denies pain on inspiration, Denies pain with cough, Denies dyspnea, Denies dyspnea on exertion, Denies stridor and Denies wheezing Musc Denies myalgias Neuro Reports Normal hearing present and Denies headache(s) Endo Denies excessive sweating Yassine/Lymph Denies lymphadenopathy Aller/Immun Denies itchy eyes, Denies seasonal rhinorrhea and Denies wheezing Physical Exam Vital Signs: Last Vital Signs Pulse 82 05/27/24 08:54 BP 132/64 05/27/24 08:54 Pulse Ox 98 05/27/24 08:54 Oxygen Delivery Method Room Air 05/27/24 08:54 BMI result Body Mass Index 20.0 Const General: cooperative, healthy appearing, comfortable, no acute distress, well developed and alert Orientation/consciousness: patient oriented x3 Limitations: no limitations HEENT Head: Yes normal to inspection, Yes normocephalic and Yes atraumatic Ears: hearing grossly normal bilaterally and external ears normal Eyes General: appearance normal, both eyes and all related structures Eyelids: Yes eyelids normal Sclerae: sclerae normal EOM: EOMs intact bilaterally Neck Neck: Yes normal visual inspection and Yes no lymphadenopathy Lymphatic: no lymphadenopathy noted Chest Chest palpation & inspection: normal inspection of the chest Resp Other: coarse post exhalation croupy cough Effort & Inspection: normal respiratory effort, able to speak in complete sentences, no audible wheezes, no stridor, not tachypneic, no tripod positioning and no use of accessory muscles Auscultation: clear to auscultation bilaterally Cardio Jugular venous distension: no JVD Rate: regular rate Rhythm: regular rhythm Skin Other: warm, dry General skin exam: no rashes or lesions noted Neuro General: patient oriented x3 Cranial nerves: Yes Normal hearing present Cognition (Neuro): normal cognition Gait exam (Neuro): Normal gait present Extrem General: Yes normal to inspection, Yes capillary refill normal, Yes no clubbing, cyanosis or edema and Yes no pedal edema Psych Appearance: grossly normal and well kempt Speech and movement: Normal speech and movement present and Clear speech present Affect: normal affect Attitude: cooperative Thought process: Normal thought process present Thought content: Normal thought content present Insight: Good insight present (Psych) Judgement: Good judgement present (Psych) Assessment & Plan Assessment & Plan (1) Asthma-COPD overlap syndrome: Code(s): J44.9 - Chronic obstructive pulmonary disease, unspecified Category: Medical (2) Bronchiectasis: Code(s): J47.9 - Bronchiectasis, uncomplicated Category: Medical Qualifiers: Bronchiectasis type: with acute exacerbation Qualified Code(s): J47.1 - Bronchiectasis with (acute) exacerbation Plan Patient presents for an acute visit after having suboptimal effect with azithromycin and continues with croupy cough with associated chest congestion. Had long discussion with patient in regards to levaquin as well as another round of steroids however she was reluctant to agree. She recently was prescribed doxycycline, azithromycin and has PCN/sulfa allergies. She was agreeable to a sputum culture, CXR and increasing Budesonide to BID. Will follow up regarding sputum culture results as well as CXR. All questions were answered and patient is in agreement of plan. Will follow up for regularly scheduled appointment with Dr. Miranda or sooner if needed. Orders: Orders Sputum Cult + Gram stain 05/27/24 J40 - Bronchitis, not specified as acute or chronic XR chest 2V 05/27/24 R05.9 - Cough, unspecified Coding Level of Care Code Est Pt Level 4 (24230) Diagnoses Asthma-COPD overlap syndrome J44.9 Bronchiectasis with acute exacerbation J47.1 Bronchiectasis type: with acute exacerbation
[2024-05-27 08:54] VITALS: BP 132/64; PULSE 82; O2SAT 98
== END 2024-05-27 09:30 | disposition home or self-care (01) ==
PROVIDERS: PCP Internal Medicine; Visit Provider Nurse Practitioner Family
DX: J44.9 Chronic obstructive pulmonary disease, unspecified (principal); J47.1 Bronchiectasis with (acute) exacerbation
CPT/HCPCS: 99214

== ENCOUNTER → 2024-05-27 08:50 | Outpatient (BNVA) | payer MEDICARE, SELFPAY | PROVIDERS: PCP Internal Medicine; Visit Provider Nurse Practitioner Family | DX: J44.9 Chronic obstructive pulmonary disease, unspecified (principal); J47.1 Bronchiectasis with (acute) exacerbation | CPT/HCPCS: 99212 ==

== ENCOUNTER 2024-06-08 10:59 | Outpatient (AMB) | payer MEDICARE, SELFPAY ==
[2024-06-08 11:09] VITALS: BP 130/72; PULSE 102; O2SAT 98; BMI 19.6
--- NOTE | 2024-06-08 11:09 | A.OFFVIS_ITS ---
Vital Signs 06/08/24 11:09 Height 5 ft 6 in Weight 121 lb 4.068 oz BMI 19.6 BP 130/72 Blood Pressure Location Rt brachial Position Sitting Pulse 102 H Pulse Source Pulse Oximeter Pulse Oximetry (%) 98 Oxygen Delivery Method Room Air Intake Visit Reasons: cough Allergies amoxicillin Allergy (Severe, Verified 06/08/24 11:13) C.DIFF sulfamethoxazole [Bactrim] Allergy (Severe, Verified 06/08/24 11:13) Shakin trimethoprim [Bactrim] Allergy (Severe, Verified 06/08/24 11:13) Shaking oxycodone Allergy (Intermediate, Verified 06/08/24 11:13) Loopy HPI Comments Details: The patient is a 73-year-old woman with a known history of asthma, gastroesophageal reflux disease not complaining worsening cough for the last couple weeks. apparently back in the summer she did develop chest discomfort. She was taken to an urgent care where she did have a chest x-ray. and also an EKG. Based on her symptoms she was transferred over to [facility] ED. She was ruled out the patient did well afterwards. Her symptoms subsided she was go back to her baseline. She does take maintenance respiratory medications. She did well until recently when she started developing worsening cough. Congested along with chest tightness. Moderate severity. She continue using her Symbicort but started using her nebulizer therapy at least once a day. His provider partial resolution of the symptoms. Her symptoms were worse at nighttime with heaviness and difficulty sleeping with her cough. The cough she describes is congested and productive. The phlegm is white to off-white in color. Denies any blood. She does get relief from the nebulizer. She also has Mucinex at home. On exam her lungs appeared to some course and prolonged expiratory phase. This is throughout. No clinical evidence of pneumonia at this time. The patient be treated with antibiotics and prednisone and also with [id number] Mucinex. If the patient is not better in the coming days patient is to get blood work, x-ray and also will request a sputum culture. Once the patient is better she will return to the office and undergo pulmonary function studies. 07/04/2021 the patient is here for pulmonary follow-up visit. The patient is feeling better since I last saw her back in March when she was ill with a asthma exacerbation/ Bronchiectasis exacerbation. She did require antibiotics and prednisone. she was supposed to undergo blood work but she did not have them. Patient also had a sputum culture that she could send if she was to [facility] but she did have 2. she continues with respiratory therapy which includes Symbicort. She has been noticing some difficulties expectorating. She feels this possibly the dryness of her home. We did talk about the importance of pulmonary hygiene and therefore will be reasonable to add hypertonic saline to her regimen prior to the Acapella valve in order to improve her broncho pulmonary clearance. In the meantime she did have pulmonary function studies today that we personally reviewed. It appears that she does have a reversible obstruction consistent with her diagnosis of asthma. When compared to 2019 her FEV1 FVC a very similar. Total lung capacity is trending elevated which could be secondary to a trend of hyperinflation due to the disease. More importantly she did mention some substernal chest pressure buildup. She has had some gases and burping related to it. She did take times and did improve her symptoms. She does take omeprazole 20 mg. I did ask her about her cardiac workup. Apparently a month ago she did have an EKG and she also had an event monitor or Holter monitor. She was given be referred to Cardiology. At this point she does not have the substernal chest discomfort. If she does get discomfort again she needs to seek medical advice just encases the heart. Explained to the patient that is very difficult to differentiate sometimes between the heart in the GI tract. Therefore is reasonable to increase her PPI continue reflux diet. Will be also very reasonable to perform a barium swallow. The patient also should have that cardiology evaluation. 11/28/2021 the patient is here for a pulmonary follow-up visit. Since we last spoke the patient developed COVID-19. The patient after recovering for COVID-19 continue to have significant respiratory complaints. She did require a course of doxycycline and then afterwards was placed on prednisone. She took 20 mg prednisone because higher than that makes it hard for her to breathe. The patient felt a little better initially but then she worsen. She did go to an urgent care where she was tested for COVID again and she tested negative. Her exam was relatively unremarkable. Apparently she did have a chest x-ray that was reassuring. She then was able to follow-up with cardiology regarding her palpitations and ectopy and was found to be relatively stable. No further in terventions took place. She was reassured that she felt better. However today again she started feeling worse with increasing shortness of breath in addition to chest congestion and wheezing. Since she had been on the nebulized therapy 2 to 3 times a day she has Doppler Symbicort. Explained to her that Symbicort is very crucial because of the inhaled steroids. It is likely that his symptoms w orsen because of the discontinuation of the prednisone and then followed by the fact that she was not using her inhaled steroids. Therefore will go ahead and place her on budesonide via nebulizer since she feels like the nebulizer is more effective for her anyway. She will perform the nebulizer with budesonide twice a day in continue with the Xopenex as well. I am hopeful that the addition of the budesonide will give her some relief. The patient already completed antibiotics and I do not believe she needs additional antibiotics at this time. If she does we can consider azithromycin as a good medication for bronchiectasis and working as an anti-inflammatory agent as well. 02/12/2022 the patient is here for a pulmonary follow-up visit. Overall she is doing a lot better. She is back to her baseline. She stop the nebulized therapies and she is back on the Symbicort. Her cough is decreased. Although she still has productive cough on a regular basis. She has not had any more imaging studies since the winter of 2021. Her chest x-ray looked well. The patient still has shortness of breath and chest tightness at times. She does have wheezing on examination. We did talk about adding a long-acting muscarinic antagonist to the Symbicort but the patient would like to hold off at this time. She does continue with her allergy medicine. Will plan to follow-up in 6 months with PFTs. If the patient has worsening symptoms she will call and I will send of the Spiriva. 11/06/2022 the patient is here for a pulmonary follow-up visit. The patient overall is been doing well. She continues on the Symbicort. She has not required her rescue inhaler. She has not required her chest PT because she is not having any significant congestion. She is practicing Easter medicine and sh e feels that that acupressure is helping her breathing and also helping with her other conditions. The patient was supposed to have pulmonary function studies but she was sick when she wears scheduled and then did not having. At this time the patient clinically is doing well and therefore will just do a spirometry her during her next visit. We do not have a chest x-ray available so therefore will have her get an x-ray before her follow-up in the spring. If the patient has any issues during the fall we were season she is to call for an appointment. 02/14/2023 the patient is here for a sick visit. Apparently she started developing worsening respiratory symptoms last week. Started having worsening cough in shortness of breath chest tightness. She started using her nebulizer with budesonide and then she also call the office. We started her on doxycycline. The patient started feeling much better after a couple days. She felt like she was back to her baseline. However, suddenly she started noticing again that she was getting more shortness of breath again and more chest congestion. She feels more congestion in the left lung. Also appreciated more rhonchi in chest congestion of the left hemithorax. The patient did go for an a chest x-ray which I personally reviewed. Has not been finally ready yet. She does have some slight blunting of the left recess. But just minimal disease. If anything it appears to be more of her bronchiectasis exacerbating. She has been using her nebulizer which has been helpful. Will go ahead and start her on a small dose of prednisone. If she notices that her sputum changes in color frequency and consistency while on the doxycycline then she can also switch over to Augmentin. Unfortunately she is had C diff in the past and therefore is always a risk. She has been on probiotics. Therefore, she would only go on the Augmentin only if she is feeling like she is getting worse. She can always call the office for further recommendations. While wait the final read if there is any other findings on the x-ray I will let her know. 07/24/2023 the patient is here for a pulmonary follow-up visit. The patient overall has been doing well. She has using a mask whenever she goes to avoid any viral illnesses that tend to trigger her asthma and bronchiectasis. She continues to use her Symbicort that he has been very effective in beneficial to her. The patient has tried multiple inhalers in the past included powdered inhalers such as Breo and she did not tolerate the powder. Now, Symbicort is no longer being covered. Therefore will switch her to Dulera based on the fact that is still an HFA and should be very similar to the Symbicort. However, I do not recommend she switch over to a powdered inhalers and she has not tolerated them in the past and resulted in adverse symptoms. So therefore will have to send the Dulera hopefully gets approved if not will have to perform a PA. the patient has not had any significant symptoms. We did look at her x-ray that she had back in January 2023 without any acute disease although she does have some hyperinflation of the lungs. She does walk regularly. We did talk about personally breathing and just breathing exercises to help her with the air trapping hyperdynamic changes. The patient will return in 6-8 months. If she has any worsening symptoms she will call for an earlier assessment. No x-rays or PFTs at this time. 02/13/2024 the patient is here for a pulmonary follow-up visit. The patient overall has been doing better. She did have COVID back in December. After she did develop a postviral bacterial infection and did require some doxycycline. She also took a course of prednisone. She had also started the nebulizer treatments. Now she is back to her baseline. She did have some difficulty with some inhalers that were change. Initially her Symbicort was switched over to a powdered inhaler that she not tolerate. Then she was switched over to Dulera per coverage for mL. She could not tolerate that either. Therefore now she is back on Symbicort and she is doing just fine. She has been able to cut down a little bit because she gets a little tremulous now with Symbicort as well. We did review her last chest x-ray that was back in 02/06/2023. She did have some apical scarring. Will plan to repeat that x-ray when able. Otherwise patient will continue her current respiratory therapy. She continues to walk regularly. She is working on deep breathing exercises. I did encourage her to use her Acapella valve balloon more regularly however. She will follow-up in 6 months or sooner if she develops any worsening issues. 03/30/2024 the patient is here for pulmonary sick visit. She apparently does take about 4 weeks ago started developing a worsening cough. She was evaluated at our [place] office. She was given a course of doxycycline. She apparently had already been on doxycycline for root canal and then subsequently had a extension of that. She initially felt better but then she started developing worsening cough chest congestion. She has also had a croupy cough moderate severity. She did call the office and we did send her a Medrol pack but the patient was unclear. Therefore she started and then she stopped it. She did restarted yesterday. She denies any wheezing or any chest tightness which is the cough. She did have a chest x-ray which I personally reviewed no acute disease noted. I did review with her. She does have very croupy cough right now appears this is tracheitis. Likely adenovirus that he has been in [place] and now superimposed with bacterial infection. Therefore recommended she start azithromycin x5 days. The patient will continue the Medrol Edgar and also will take some Mucinex DM. She will follow-up with regular follow-up visit in August if she is doing okay. Otherwise she will call for an earlier assessment. 06/08/2024 the patient is here for sick visit. She has been coughing now for several months. The cough is seems to be croupy in nature. Feels like she is congested but not a lot of mucus secretions are clearing. In part may be a component of tracheomalacia. She also has evidence of bronchiectasis. The patient has been using her respiratory medications as prescribed. Still does not feel well. She did have a chest x-ray which we personally reviewed without any acute disease. Will request a CT scan at this point since the CT scan will be helpful in determining if there is any evidence of tracheomalacia and also to assess the degree of bronchiectasis. And also to see if there is any other etiologies to explain her persistent cough for the last several months. We tried getting a sputum culture in the office but she was not able to bring 1 up. I did give her a cup so she can take 1 to the nearest lab. In the meantime will start her on azithromycin 3 times a week for chronic bronchitis in addition to helping her with reflux disease. The patient will also start more anti acid therapy for her underlying reflux disease. Also we can work on cough suppressors in order to provide her some relief and minimize the injury to the trachea. The patient will follow-up after her CT scan in 6 weeks. In the meantime she will continue with regimen provided. [facility] Medical History (Updated 06/08/24 @ 22:11 by Israel Miranda MD) Laryngotracheitis Asthma-COPD overlap syndrome Chest discomfort GERD (gastroesophageal reflux disease) Chronic rhinitis Asthma Bronchiectasis Social History Patient Tobacco Use Status: Never used Tobacco Review of Systems Const Denies chills, Denies excessive sweating, Denies fever(s), Denies headache(s) and Denies night sweats Eyes Denies dry eyes, Denies irritation and Denies itchy eyes ENT Reports Normal hearing present, Denies headache(s), Denies nasal congestion, Denies nasal discharge, Denies post nasal drip and Denies sore throat Card Denies chest pain, Denies chest pain at rest, Denies chest pain with activity, Denies claudication, Denies leg edema, Denies dyspnea, Denies dyspnea on exertion, Denies orthopnea and Denies paroxysmal nocturnal dyspnea Resp Denies excessive phlegm production, Denies pain on inspiration, Denies pain with cough, Denies dyspnea, Denies dyspnea on exertion, Denies stridor and Denies wheezing Musc Denies myalgias Neuro Reports Normal hearing present and Denies headache(s) Endo Denies excessive sweating Yassine/Lymph Denies lymphadenopathy Aller/Immun Denies itchy eyes, Denies seasonal rhinorrhea and Denies wheezing Physical Exam Vital Signs: Last Vital Signs Pulse 102 H 06/08/24 11:09 BP 130/72 06/08/24 11:09 Pulse Ox 98 06/08/24 11:09 Oxygen Delivery Method Room Air 06/08/24 11:09 BMI result Body Mass Index 19.6 Const General: alert HEENT Head: Yes normocephalic Neck Neck: Yes normal visual inspection, Yes full ROM and Yes no lymphadenopathy Chest Chest palpation & inspection: normal inspection of the chest Resp Effort & Inspection: normal respiratory effort and Actively coughing Quality: actively coughing (croup) Auscultation: no rhonchi, no wheezes and diminished lung sounds Cardio Rate: regular rate Rhythm: regular rhythm Heart sounds: S1 normal heart sound present and S2 normal heart sound present GI Palpation (GI): Soft to palpation and nontender Auscultation: normal bowel sounds Skin General skin exam: rashes and/or lesions noted Neuro Cranial nerves: Yes Normal hearing present Extrem General: Yes no clubbing, cyanosis or edema Assessment & Plan Assessment & Plan (1) Bronchiectasis: Code(s): J47.9 - Bronchiectasis, uncomplicated Category: Medical Qualifiers: Bronchiectasis type: with acute exacerbation Qualified Code(s): J47.1 - Bronchiectasis with (acute) exacerbation (2) Asthma: Code(s): J45.909 - Unspecified asthma, uncomplicated Category: Medical Qualifiers: Asthma severity: moderate Asthma persistence: persistent Asthma complication type: with acute exacerbation Qualified Code(s): J45.41 - Moderate persistent asthma with (acute) exacerbation (3) Chronic rhinitis: Code(s): J31.0 - Chronic rhinitis Category: Medical (4) Asthma-COPD overlap syndrome: Code(s): J44.9 - Chronic obstructive pulmonary disease, unspecified Category: Medical (5) Laryngotracheitis: Comment: pertussis versus adenovirus, ?TBM Code(s): J04.2 - Acute laryngotracheitis Category: Medical Plan continue Symbicort BID Start Azithromycin 250mg MWF Budesonide neb Continue Xopenex as needed sputum culture CPT with acapella valve CT chest consider bronchoscopy Follow-up in 6-8 weeks Orders: Orders CT chest wo IV con Today J47.9 - Bronchiectasis, uncomplicated Medications: New benzonatate 200 mg PO BID PRN 60 caps 5RF cough 30 days azithromycin Take 1 tablet on Saturday/Saturday/Saturday 250 mg PO 3XW 12 tabs 6RF 28 days K21.9 - Gastro-esophageal reflux disease without esophagitis famotidine (Pepcid) 40 mg PO BEDTIME 30 tabs 1RF Coding Level of Care Code Est Pt Level 4 (75526) Complex EM visit Add On G2211 Diagnoses Bronchiectasis with acute exacerbation J47.1 Bronchiectasis type: with acute exacerbation Moderate persistent asthma with acute exacerbation J45.41 Asthma severity: moderate Asthma persistence: persistent Asthma complication type: with acute exacerbation Chronic rhinitis J31.0 Asthma-COPD overlap syndrome J44.9 Laryngotracheitis J04.2 Time Spent (min) 17
== END 2024-06-08 11:55 | disposition home or self-care (01) ==
PROVIDERS: PCP Internal Medicine; Visit Provider Hospitalist
DX: J47.1 Bronchiectasis with (acute) exacerbation (principal); J45.41 Moderate persistent asthma with (acute) exacerbation; J31.0 Chronic rhinitis; J44.9 Chronic obstructive pulmonary disease, unspecified; J04.2 Acute laryngotracheitis
CPT/HCPCS: 99214; G2211

== ENCOUNTER → 2024-06-08 10:59 | Outpatient (BNVA) | payer MEDICARE, SELFPAY | PROVIDERS: PCP Internal Medicine; Visit Provider Hospitalist | DX: J45.41 Moderate persistent asthma with (acute) exacerbation (principal); J44.9 Chronic obstructive pulmonary disease, unspecified; J47.1 Bronchiectasis with (acute) exacerbation; J31.0 Chronic rhinitis; J04.2 Acute laryngotracheitis | CPT/HCPCS: 99212 ==

== ENCOUNTER 2024-07-17 08:34 | Outpatient (REF) | payer MEDICARE, SELFPAY ==
--- NOTE | ~2024-07-17 | CT_ITS ---
CLINICAL HISTORY: J47.9 - Bronchiectasis, uncomplicated CT chest without contrast Comparison: CR/SR - XR CHEST 2V - 02/14/23 15:43 EDT Findings: There is moderate coronary artery disease. Heart is otherwise unremarkable. The visualized thyroid and mediastinum are unremarkable. There is some scarring in the upper lobes bilaterally There is a masslike area of consolidation in the lingular segment. There is no evidence of bronchiectasis. The patient is status post cholecystectomy. There is [id number] dilatation of the central renal collecting systems bilaterally. No acute fractures. IMPRESSION: 1.There is a masslike area of consolidation in the lingular segment. Please obtain a follow-up examination after treatment To exclude a mass. 2.Dilated renal collecting systems. This document has been electronically signed by: Brandon Torres MD on 07/17/2024 11:21:25
--- OUTSIDE RECORDS SUMMARY | 2024-07-17 08:47 | XMS_ITS | Clinical Summary ---
Author Organization [facility] ity Address [address] [place] [address] Care Team Providers Care Manager Integrity Name Role Phone ReneYadyKrista Primary Care Pro vider Surgical History Surgery Date Site/Laterality Comments CHOLECYSTECTOMY PROCEDURE: HISTORICAL CHOLECYSTECTOMY TONSILLECTOMY PROCEDURE: HISTORICAL TONSILLECTOMY Medical History Medical History Date Comments History of Clostridium difficile colitis 017 DX:History of Clostridium difficile colitis Asthma 02/24/2017 DX:Asthma Bronchiectasis ([facility]) 02/22/2017 DX:Bron chiectasis ([facility]) Gastroesophageal reflux disease 02/22/2017 DX:Gastroesophageal reflux disease Irritable bowel syndrome 09/10/2016 DX:Irri table bowel syndrome Seasonal allergic rhinitis 12/07/2016 DX:Se asonal allergic rhinitis Chronic obstructive pulmonar y disease (COPD) ([facility]) 08/20/2017 DX:Chronic obstructive pulmo nary disease (COPD) ([facility]) 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[facility]) 08/20/2017 DX: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[facility]) Social History Tobacco Use Types Packs/Day Years Used Date Smoking Tobacco: Never Smokeless Tobacco: Never Alcohol Use Standard Drinks/Week Comments No 0 (1 standard drink = 0.6 oz pur e alcohol) Comments Unknown Sex and Gender Information Value Date Recorded Sex Assigned at Not on file Legal Sex Female 1:59 PM EST Gender Identity Not on file Sexual Orientation Not on file Obstetrics History Last Filed Vital Signs Vital Sign Reading Time Taken Comments Blood Pressure 116/62 12/01/2022 3:54 PM EDT L A rm Pulse 96 12/01/2022 3:54 PM EDT Temperature - - Respiratory Rate - - Oxygen Saturation - - Inhaled Oxygen Concentration - - Weight - - Height - - Body Mass Index - - Plan of Treatment Health Maintenance Due Date Last Done Comments Breast Cancer Screening 1950 DTaP,Tdap,and Td Vaccines (1 - Tdap) 07/31/1970 Pneumococcal Vaccine: 50+ Ye ars (1 of 2 - PCV) 07/31/1970 Zoster Vaccines (1 of 2) 07/31/2001 RSV Immunization Patients 60 + Years Old (1 - Risk 60-74 years 1-dose series) 2011 Colorectal Cancer Screening: Colonoscopy 04/18/2022 Depression Screening 04/18/2022 Falls Risk Assessment 04/18/2022 Hepatitis C Screening 04/18/2022 Osteoporosis Screening (Bone Density Screening) 04/18/2022 Social Influencers of Health Screening 04/18/2022 COVID-19 Vaccine ( - 2023-2 5 season) 2024 Influenza Vaccine (#1) 2024 HIB Vaccines Aged Out No longer eligi ble based on patient's age to complete this topic HPV Vaccines Aged Out No longer eligi ble based on patient's age to complete this topic Hepatitis A Vaccines Aged Out No long er eligible based on patient's age to complete this topic Hepatitis B Vaccines Aged Out No long er eligible based on patient's age to complete this topic IPV Vaccines Aged Out No longer eligi ble based on patient's age to complete this topic MMR Vaccines Aged Out No longer eligi ble based on patient's age to complete this topic Meningococcal ACWY Vaccine Aged Out N o longer eligible based on patient's age to complete this topic Meningococcal B Vacine Aged Out No lo nger eligible based on patient's age to complete this topic RSV Immunization Patients Un marcus 20 months Aged Out No longer eligible b ased on patient's age to complete this topic Varicella Vaccines Aged Out No longer eligible based on patient's age to complete this topic Care Teams Manager Integrity Relationship Specialty Start Date End Date Krista Tovar DO [facility] [address] [place] [id number] PCP - General 06/27/22
== END 2024-07-17 08:35 | disposition home or self-care (01) ==
LOC: HO.CT 08:34
PROVIDERS: PCP Internal Medicine; Visit Provider Hospitalist
DX: J47.9 Bronchiectasis, uncomplicated (principal)
CPT/HCPCS: 71250

== ENCOUNTER → 2024-07-17 08:35 | Outpatient (BNV) | payer MEDICARE, SELFPAY | PROVIDERS: PCP Internal Medicine; Visit Provider Radiology Diagnostic Radiology | DX: R91.8 Other nonspecific abnormal finding of lung field (principal) | CPT/HCPCS: 71250 ==

== ENCOUNTER 2024-07-22 10:49 | Outpatient (AMB) | payer MEDICARE, SELFPAY ==
[2024-07-22 10:56] VITALS: BP 120/58; PULSE 85; O2SAT 99; BMI 19.2
--- NOTE | 2024-07-22 10:56 | MHC.OFFVIS ---
Vital Signs 07/22/24 10:56 Height 5 ft 6 in Weight 119 lb 0.794 oz BMI 19.2 BP 120/58 L Blood Pressure Location Lt brachial Position Sitting Pulse 85 Pulse Source Pulse Oximeter Pulse Oximetry (%) 99 Oxygen Delivery Method Room Air Intake Visit Reasons: Bronchiectasis/CT Follow Up Allergies amoxicillin Allergy (Severe, Verified 07/22/24 11:00) C.DIFF sulfamethoxazole [Bactrim] Allergy (Severe, Verified 07/22/24 11:00) Shakin trimethoprim [Bactrim] Allergy (Severe, Verified 07/22/24 11:00) Shaking oxycodone Allergy (Intermediate, Verified 07/22/24 11:00) Loopy HPI Comments Details: The patient is a 73-year-old woman with a known history of asthma, gastroesophageal reflux disease not complaining worsening cough for the last couple weeks. apparently back in the summer she did develop chest discomfort. She was taken to an urgent care where she did have a chest x-ray. and also an EKG. Based on her symptoms she was transferred over to [facility] ED. She was ruled out the patient did well afterwards. Her symptoms subsided she was go back to her baseline. She does take maintenance respiratory medications. She did well until recently when she started developing worsening cough. Congested along with chest tightness. Moderate severity. She continue using her Symbicort but started using her nebulizer therapy at least once a day. His provider partial resolution of the symptoms. Her symptoms were worse at nighttime with heaviness and difficulty sleeping with her cough. The cough she describes is congested and productive. The phlegm is white to off-white in color. Denies any blood. She does get relief from the nebulizer. She also has Mucinex at home. On exam her lungs appeared to some course and prolonged expiratory phase. This is throughout. No clinical evidence of pneumonia at this time. The patient be treated with antibiotics and prednisone and also with [id number] Mucinex. If the patient is not better in the coming days patient is to get blood work, x-ray and also will request a sputum culture. Once the patient is better she will return to the office and undergo pulmonary function studies. 02/13/2024 the patient is here for a pulmonary follow-up visit. The patient overall has been doing better. She did have COVID back in December. After she did develop a postviral bacterial infection and did require some doxycycline. She also took a course of prednisone. She had also started the nebulizer treatments. Now she is back to her baseline. She did have some difficulty with some inhalers that were change. Initially her Symbicort was switched over to a powdered inhaler that she not tolerate. Then she was switched over to Dulera per coverage for mL. She could not tolerate that either. Therefore now she is back on Symbicort and she is doing just fine. She has been able to cut down a little bit because she gets a little tremulous now with Symbicort as well. We did review her last chest x-ray that was back in 02/06/2023. She did have some apical scarring. Will plan to repeat that x-ray when able. Otherwise patient will continue her current respiratory therapy. She continues to walk regularly. She is working on deep breathing exercises. I did encourage her to use her Acapella valve balloon more regularly however. She will follow-up in 6 months or sooner if she develops any worsening issues. 03/30/2024 the patient is here for pulmonary sick visit. She apparently does take about 4 weeks ago started developing a worsening cough. She was evaluated at our [facility] office. She was given a course of doxycycline. She apparently had already been on doxycycline for root canal and then subsequently had a extension of that. She initially felt better but then she started developing worsening cough chest congestion. She has also had a croupy cough moderate severity. She did call the office and we did send her a Medrol pack but the patient was unclear. Therefore she started and then she stopped it. She did restarted yesterday. She denies any wheezing or any chest tightness which is the cough. She did have a chest x-ray which I personally reviewed no acute disease noted. I did review with her. She does have very croupy cough right now appears this is tracheitis. Likely adenovirus that he [place] been [place] and now superimposed with bacterial infection. Therefore recommended she start azithromycin x5 days. The patient will continue the Medrol Edgar and also will take some Mucinex DM. She will follow-up with regular follow-up visit in August if she is doing okay. Otherwise she will call for an earlier assessment. 06/08/2024 the patient is here for sick visit. She has been coughing now for several months. The cough is seems to be croupy in nature. Feels like she is congested but not a lot of mucus secretions are clearing. In part may be a component of tracheomalacia. She also has evidence of bronchiectasis. The patient has been using her respiratory medications as prescribed. Still does not feel well. She did have a chest x-ray which we personally reviewed without any acute disease. Will request a CT scan at this point since the CT scan will be helpful in determining if there is any evidence of tracheomalacia and also to assess the degree of bronchiectasis. And also to see if there is any other etiologies to explain her persistent cough for the last several months. We tried getting a sputum culture in the office but she was not able to bring 1 up. I did give her a cup so she can take 1 to the nearest lab. In the meantime will start her on azithromycin 3 times a week for chronic bronchitis in addition to helping her with reflux disease. The patient will also start more anti acid therapy for her underlying reflux disease. Also we can work on cough suppressors in order to provide her some relief and minimize the injury to the trachea. The patient will follow-up after her CT scan in 6 weeks. In the meantime she will continue with regimen provided. 07/22/2024 the patient is here for a pulmonary follow-up visit. She continues to have persistent cough chest congestion. The phlegm now is whitish in color. Moderate severity. She had been given a prescription for doxycycline and subsequently to that she was placed on azithromycin 3 times a week. Although no significant improvement. She did undergo a CT scan of the chest which we personally reviewed. Appears to show a masslike density in the lingula and some ground-glass opacities rounded. Could be a masslike consolidation such an infectious process. We were able to get a sputum previously and were still waiting for the finally station but it appears to have a mold. Wonder if it could be Aspergillus. [facility]. In the meantime we did try to get a sputum in the office but she was not able to. Explained to the patient and also her son the this is likely to be infectious process based on the appearance. However, can not rule out a malignant process. Therefore, 1 option would be to treat her empirically with antibiotics and or antifungal therapy. However, the patient has already had history of C diff in the past. And empiric antibiotics sometimes a difficult for her to tolerate specially there strong. The other option is to undergo bronchoscopy to get further cultures in addition to cytology and biopsy. In view of the peripheral location of this masslike density will be best approach with navigational bronchoscopy. If the would like to proceed with a diagnostic intervention I would suggest referral to Interventional Pulmonary at [facility] with can do navigational bronchoscopy for both infectious etiologies and also for malignant etiologies. In the meantime I did give her a sputum cup for her to be able to provide a sputum sample. If she decides to move forward will put a referral in to interventional Pulmonary. Otherwise if she decides to be treated empirically we can always repeat the CT scan in 6-8 weeks. She will talk to her kitchen decide. Seems like she is leaning towards having a procedure. [facility] Medical History (Updated 07/22/24 @ 18:33 by Israel Miranda MD) Pulmonary nodule Pneumonia Laryngotracheitis Asthma-COPD overlap syndrome Chest discomfort GERD (gastroesophageal reflux disease) Chronic rhinitis Asthma Bronchiectasis Social History Patient Tobacco Use Status: Never used Tobacco Review of Systems Const Denies chills, Denies excessive sweating, Denies fever(s), Denies headache(s) and Denies night sweats Eyes Denies dry eyes, Denies irritation and Denies itchy eyes ENT Reports Normal hearing present, Denies headache(s), Denies nasal congestion, Denies nasal discharge, Denies post nasal drip and Denies sore throat Card Denies chest pain, Denies chest pain at rest, Denies chest pain with activity, Denies claudication, Denies leg edema, Denies dyspnea, Denies dyspnea on exertion, Denies orthopnea and Denies paroxysmal nocturnal dyspnea Resp Denies excessive phlegm production, Denies pain on inspiration, Denies pain with cough, Denies dyspnea, Denies dyspnea on exertion, Denies stridor and Denies wheezing Musc Denies myalgias Neuro Reports Normal hearing present and Denies headache(s) Endo Denies excessive sweating Yassine/Lymph Denies lymphadenopathy Aller/Immun Denies itchy eyes, Denies seasonal rhinorrhea and Denies wheezing Physical Exam Vital Signs: Last Vital Signs Pulse 85 07/22/24 10:56 BP 120/58 L 07/22/24 10:56 Pulse Ox 99 07/22/24 10:56 Oxygen Delivery Method Room Air 07/22/24 10:56 BMI result Body Mass Index 19.2 Const General: alert HEENT Head: Yes normocephalic Neck Neck: Yes normal visual inspection, Yes full ROM and Yes no lymphadenopathy Chest Chest palpation & inspection: normal inspection of the chest Resp Effort & Inspection: normal respiratory effort and Actively coughing Quality: actively coughing (croup) Auscultation: no rhonchi, no wheezes and diminished lung sounds Cardio Rate: regular rate Rhythm: regular rhythm Heart sounds: S1 normal heart sound present and S2 normal heart sound present GI Palpation (GI): Soft to palpation and nontender Auscultation: normal bowel sounds Skin General skin exam: rashes and/or lesions noted Neuro Cranial nerves: Yes Normal hearing present Extrem General: Yes no clubbing, cyanosis or edema Office Procedures Nebulizer Treatment Nebulizer Treatment [id number] RX initial, or Nebulizer Subsequent Treatment Office Meds levalbuterol HCl 1.25 mg/3 mL solution for nebulization Performing Provider: Israel Miranda MD Performing Location: [facility] Pulmonology Services Administered by: Faiza Fox LPN on 07/22/24 11:56 Dose Route Admin Location Dispensed Lot Number Expiration Date [facility] Tooling Supervisor 1.25 mg inhalation 3 mL [id number] 07/17/25 [id number] [employer] sodium chloride 3 % for nebulization Performing Provider: Israel Miranda MD Performing Location: [facility] Pulmonology Services Administered by: Faiza Fox LPN on 07/22/24 11:56 Dose Route Admin Location Dispensed Lot Number Expiration Date [employer] Tooling Supervisor 3 mL inhalation 3 mL [id number] 02/16/25 [id number] [facility] Assessment & Plan Assessment & Plan (1) Pneumonia: Code(s): J18.9 - Pneumonia, unspecified organism Category: Medical Qualifiers: Pneumonia type: due to unspecified organism Laterality: left Lung location: upper lobe of lung Qualified Code(s): J18.9 - Pneumonia, unspecified organism (2) Pulmonary nodule: Code(s): R91.1 - Solitary pulmonary nodule Category: Medical (3) Bronchiectasis: Code(s): J47.9 - Bronchiectasis, uncomplicated Category: Medical Qualifiers: Bronchiectasis type: with acute exacerbation Qualified Code(s): J47.1 - Bronchiectasis with (acute) exacerbation (4) Asthma: Code(s): J45.909 - Unspecified asthma, uncomplicated Category: Medical Qualifiers: Asthma severity: moderate Asthma persistence: persistent Asthma complication type: with acute exacerbation Qualified Code(s): J45.41 - Moderate persistent asthma with (acute) exacerbation (5) Chronic rhinitis: Code(s): J31.0 - Chronic rhinitis Category: Medical (6) Asthma-COPD overlap syndrome: Code(s): J44.9 - Chronic obstructive pulmonary disease, unspecified Category: Medical Plan continue Symbicort BID stop Azithromycin 250mg MWF Budesonide neb Continue Xopenex as needed sputum culture CPT with acapella valve consider bronchoscopy, will refer to IP at [facility] Follow-up in 6-8 weeks Orders: Orders AMB Nebulizer Treatment Today J44.9 - Chronic obstructive pulmonary disease, unspecified Acid-fast Culture + Smear Today J18.9 - Pneumonia, unspecified organism, R91.1 - Solitary pulmonary nodule Sputum Cult + Gram stain Today R91.1 - Solitary pulmonary nodule Referrals Thoracic/General Surgery Referral R91.1 - Solitary pulmonary nodule Coding Level of Care Code Est Pt Level 5 (32151) Diagnoses Pneumonia of left upper lobe due to infectious organism J18.9 Pneumonia type: due to unspecified organism Laterality: left Lung location: upper lobe of lung Pulmonary nodule R91.1 Bronchiectasis with acute exacerbation J47.1 Bronchiectasis type: with acute exacerbation Moderate persistent asthma with acute exacerbation J45.41 Asthma severity: moderate Asthma persistence: persistent Asthma complication type: with acute exacerbation Chronic rhinitis J31.0 Asthma-COPD overlap syndrome J44.9 CPT Codes Nebulizer Treatment - Nebulizer Treatment, initial or subsequent: [id number] RX initial, or Nebulizer Subsequent Treatment ([id number]) Time Spent (min) 60
--- OUTSIDE RECORDS SUMMARY | 2024-07-22 12:57 | XMS_ITS | Encounter Summary ---
[facility] Address [address] [place] [address] Care Team Providers Care Addictions Recovery Specialist Name Role Phone Hailee Andres MD Primary Care Provider Krista Serrano DO Primary Care Pro vider Unavailable Reason for Visit * Reason Onset Date Comments refill request 11/14/2018 Encounter Details Date Type Department Care Team Description 11/14/2018 Refill Pulmonology - [address] [place] [phone] Israel Miranda MD refill request Social History Tobacco Use Types Packs/Day Years Used Date Smoking Tobacco: Never Smokeless Tobacco: Never Alcohol Use Standard Drinks/Week Comments No 0 (1 standard drink = 0.6 oz pur e alcohol) Sex Assigned at Date Recorded Not on file documented as of this encounter Miscellaneous Notes * Telephone Encounter - Dora Miranda - 11/14/2018 4:08 PM EDT Patient would like script to be: E-PRESCRIBED/FAXED TO PHARMACY WHEN WAS THE PATIENT'S LAST APPOINTMENT IN ADULT MEDICINE? 08/26/18 WHEN WAS THE LAST TIME THE PATIENT SAW THEIR PCP? Same as above Does patient have an upcoming appointment? Yes 11/25/18 (THE MEDICATION REQUESTED IS ON THE MED LIST ABOVE) All of the medications requested were on the CURRENT MEDS list Did you check the Pharmacy information above?: YES Patient wants: 30 -day supply Is this a mail order prescription request ? NO If the refill is from a FAXED refill request what is the RX # listed on the fax? N/A Patients current insurance carrier is: Payor: MEDICARE-[employer] / Plan[place] / Product Type: MEDICARE [id number] documented in this encounter Plan of Treatment Not on file documented as of this encounter Visit Diagnoses Not on filedocumented in this encounter Care Teams Addictions Recovery Specialist Relationship Specialty Start Date End Date Hailee Andres MD PCP - General Internal Medicine 05/16/17 06/26/22 Krista Jeff DO PCP - General Internal Medicine 06/27/22 documented as of this encounter
--- OUTSIDE RECORDS SUMMARY | 2024-07-22 12:57 | XMS_ITS | Clinical Summary ---
Author Organization [facility] Address [address] [place] [address] Care Team Providers Care Transport Coordinator Name Role Phone ReneYadyKrista Primary Care Pro vider Surgical History Surgery Date Site/Laterality Comments CHOLECYSTECTOMY PROCEDURE: HISTORICAL CHOLECYSTECTOMY TONSILLECTOMY PROCEDURE: HISTORICAL TONSILLECTOMY Medical History Medical History Date Comments History of Clostridium difficile colitis 017 DX:History of Clostridium difficile colitis Asthma 02/24/2017 DX:Asthma Bronchiectasis ([facility]) 02/22/2017 DX:Bron chiectasis ([facility]) Gastroesophageal reflux disease 02/22/2017 DX:Gastroesophageal reflux disease Irritable bowel syndrome 09/10/2016 DX:Irri table bowel syndrome Seasonal allergic rhinitis 12/07/2016 DX:Se asonal allergic rhinitis Chronic obstructive pulmonar y disease (COPD) ([facility]) 08/20/2017 DX:Chronic obstructive pulmo nary disease (COPD) ([facility]) 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
--- OUTSIDE RECORDS SUMMARY | 2024-07-22 12:57 | XMS_ITS | Encounter Summary ---
[facility] Organization [facility] Address [address] [place] [address] Care Team Providers Care Soiled Linen Distributor Name Role Phone Hailee Andres MD Primary Care Provider Unavailabl e Krista Jeff DO Primary Care Pro vider Unavailable Encounter Details Date Type Department Care Team Description 05/21/2017 Release of Information Medical Records [address] [place] [id number] Abstract, Provider Social History Tobacco Use Types Packs/Day Years Used Date Smoking Tobacco: Never Smokeless Tobacco: Never Alcohol Use Standard Drinks/Week Comments No 0 (1 standard drink = 0.6 oz pur e alcohol) Sex Assigned at Date Recorded Not on file documented as of this encounter Plan of Treatment Not on file documented as of this encounter Visit Diagnoses Not on filedocumented in this encounter Care Teams Soiled Linen Distributor Relationship Specialty Start Date End Date Hailee Andres MD PCP - General Internal Medicine 05/16/17 06/26/22 Krista Jeff DO PCP - General Internal Medicine 06/27/22 documented as of this encounter
--- OUTSIDE RECORDS SUMMARY | 2024-07-22 12:57 | XMS_ITS | Encounter Summary ---
[facility] Address [address] [place] [address] Care Team Providers Care Manager Architecture Name Role Phone Hailee Andres MD Primary Care Provider Unavailtina e Krista Jeff DO Primary Care Pro vider Unavailable Encounter Details Date Type Department Care Team Description 03/29/2017 Transfer Records Medical Records [address] [place] [id number] Abstract, Provider Social History Tobacco Use Types Packs/Day Years Used Date Smoking Tobacco: Never Assessed Sex Assigned at Date Recorded Not on file documented as of this encounter Plan of Treatment Not on file documented as of this encounter Visit Diagnoses Not on filedocumented in this encounter Care Teams Manager Architecture Relationship Specialty Start Date End Date Hailee Andres MD PCP - General Internal Medicine 05/16/17 06/26/22 Krista Jeff DO PCP - General Internal Medicine 06/27/22 documented as of this encounter
--- OUTSIDE RECORDS SUMMARY | 2024-07-22 12:57 | XMS_ITS | Encounter Summary ---
[facility] Organization [facility] Address [address] [place] [address] Care Team Providers Care Counter Manager Name Role Phone Hailee Andres MD Primary Care Provider Unavailabl e Krista Jeff DO Primary Care Pro vider Unavailable Encounter Details Date Type Department Care Team Description 12/27/2018 Release of Information Medical Records [address] [place] [id number] Abstract, Provider Social History Tobacco Use Types [...] on filedocumented in this encounter Care Teams Counter Manager Relationship Specialty Start Date End Date Hailee Andres MD PCP - General Internal Medicine 05/16/17 06/26/22 Krista Jeff DO PCP - General Internal Medicine 06/27/22 documented as of this encounter
--- OUTSIDE RECORDS SUMMARY | 2024-07-22 12:58 | XMS_ITS | Encounter Summary ---
Author Organization [facility] Address [address] [place] [address] Care Team Providers Care Seaming Machine Operator Name Role Phone Hailee Andres MD Primary Care Provider Unavailabl e Krista Jeff DO Primary Care Pro vider Unavailable Encounter Details Date Type Department Care Team Description 03/13/2018 Group Chief Operator Report Medical Records [address] [place] [id number] Vishal Grant Social History Tobacco Use Types Packs/Day Years [...] on filedocumented in this encounter Care Teams Seaming Machine Operator Relationship Specialty Start Date End Date Hailee Andres MD PCP - General Internal Medicine 05/16/17 06/26/22 Krista Jeff DO PCP - General Internal Medicine 06/27/22 documented as of this encounter
--- OUTSIDE RECORDS SUMMARY | 2024-07-22 12:58 | XMS_ITS | Encounter Summary ---
Author Organization [facility] Address [address] [place] [address] Care Team Providers Care Strategic Planning Director Name Role Phone Hailee Andres MD Primary Care Provider Krista Serrano DO Primary Care Pro vider Unavailable Reason for Visit * Reason Onset Date Comments DME Request 01/21/2018 Encounter Details Date Type Department Care Team Description 01/21/2018 Telephone Pulmonology - [address] [place] [phone] Israel Miranda MD DME Request Social History Tobacco Use Types Packs/Day Years Used Date Smoking Tobacco: Never Smokeless Tobacco: Never Alcohol Use Standard Drinks/Week Comments No 0 (1 standard drink = 0.6 oz pur e alcohol) Sex Assigned at Date Recorded Not on file documented as of this encounter Miscellaneous Notes * Telephone Encounter - Víctor Dean - 01/24/2018 3:18 PM EDT Order for acasalliea send to [facility] pt notified. * Telephone Encounter - Kemi Araujo - 01/24/2018 2:59 PM EDT Patient calling back regarding status of below request Please review Patient can be reached at [phone] (home) * Telephone Encounter - Libby Martin - 01/21/2018 1:48 PM EDT Pt said she dropped her acapella she said she needs a new One documented in this encounter Plan of Treatment Not on file documented as of this encounter Procedures Procedure Name Priority Date/Time Associated Diagnosis Comments ACAPELLA DEVICE Routine 01/24/2018 3:13 PM EDT Chronic obstructive pulmonary disease, unspecified COPD type (HCC) documented in this encounter Visit Diagnoses Diagnosis Chronic obstructive pulmonary disease, unspecified COPD type (HCC)- Primary documented in this encounter Care Teams Strategic Planning Director Relationship Specialty Start Date End Date Hailee Andres MD PCP - General Internal Medicine 05/16/17 06/26/22 Krista Jeff DO PCP - General Internal Medicine 06/27/22 documented as of this encounter
--- OUTSIDE RECORDS SUMMARY | 2024-07-22 12:58 | XMS_ITS | Encounter Summary ---
Author Organization [facility] Address [address] [place] [address] Care Team Providers Care Magneto Specialist Name Role Phone Hailee Andres MD Primary Care Provider Krista Serrano DO Primary Care Pro vider Unavailable Reason for Visit * Reason Onset Date Comments Medication 10/29/2017 Encounter Details Date Type Department Care Team Description 10/29/2017 Telephone Pulmonology - [address] [place] [phone] Israel Miranda MD Medication Social History Tobacco Use Types Packs/Day Years Used Date Smoking Tobacco: Never Smokeless Tobacco: Never Alcohol Use Standard Drinks/Week Comments No 0 (1 standard drink = 0.6 oz pur e alcohol) Sex Assigned at Date Recorded Not on file documented as of this encounter Miscellaneous Notes * Telephone Encounter - Nena Tyson M.A. - 12/10/2017 9:45 AM EDT Spoke with luzmaria from [facility] who stated that this is covered and its waiting for pt to clam picker . * Telephone Encounter - Alexandra Tamayo M.A. - 12/03/2017 10:06 AM EDT Received a fax from insurance for non-formulary medication levalbuterol 1.25mg/0.5ml via nebulizer Form completed and faxed back to insurance * Telephone Encounter - Israel Miranda MD - 11/28/2017 5:20 PM EDT resent * Telephone Encounter - Radha Pires M.A. - 11/28/2017 4:27 PM EDT Please send script we need denial so pa dept can do PA. * Telephone Encounter - Alcira Mathias - 11/28/2017 3:35 PM EDT Patient calling wondering PA had been done for the levalbuterol (XOPENEX) 1.25 MG/0.5ML nebulizer solution. Has 9 vials left. * Telephone Encounter - Radha Pires M.A. - 10/29/2017 4:15 PM EDT We can send refill and wait til we get denial. * Telephone Encounter - Darline Corona - 10/29/2017 4:11 PM EDT Who is calling? The patient Name of the medication Levabuterol for her Nebulizer (has enough til next week ) What is the specific problem or interaction? No longer covered by her insurance If the patient is having a problem with taking the med - how long has the problem been going on? N/A documented in this encounter Plan of Treatment Not on file documented as of this encounter Visit Diagnoses Not on filedocumented in this encounter Care Teams Magneto Specialist Relationship Specialty Start Date End Date Hailee Andres MD PCP - General Internal Medicine 05/16/17 06/26/22 Krista Jeff DO PCP - General Internal Medicine 06/27/22 documented as of this encounter
--- OUTSIDE RECORDS SUMMARY | 2024-07-22 12:58 | XMS_ITS | Encounter Summary ---
Author Organization [facility] Address [address] [place] [address] Care Team Providers Care Transport Corps Officer Name Role Phone Hailee Andres MD Primary Care Provider Unavailabl e Krista Jeff DO Primary Care Pro vider Unavailable Encounter Details Date Type Department Care Team Description 11/29/2017 Orders Only Pulmonology - [address] [place] [phone] Israel Miranda MD Social History Tobacco Use Types Packs/Day Years [...] on filedocumented in this encounter Care Teams Transport [employer] Officer Relationship Specialty Start Date End Date Hailee Andres MD PCP - General Internal Medicine 05/16/17 06/26/22 Krista Jeff DO PCP - General Internal Medicine 06/27/22 documented as of this encounter
== END 2024-07-22 12:06 | disposition home or self-care (01) ==
PROVIDERS: PCP Internal Medicine; Visit Provider Hospitalist
DX: J18.9 Pneumonia, unspecified organism (principal); R91.1 Solitary pulmonary nodule; J47.1 Bronchiectasis with (acute) exacerbation; J45.41 Moderate persistent asthma with (acute) exacerbation; J44.9 Chronic obstructive pulmonary disease, unspecified
CPT/HCPCS: 99215

== ENCOUNTER → 2024-07-22 10:49 | Outpatient (BNVA) | payer MEDICARE, SELFPAY | PROVIDERS: PCP Internal Medicine; Visit Provider Hospitalist | DX: J18.9 Pneumonia, unspecified organism (principal); J47.1 Bronchiectasis with (acute) exacerbation; J45.41 Moderate persistent asthma with (acute) exacerbation; J31.0 Chronic rhinitis; R91.1 Solitary pulmonary nodule; K21.9 Gastro-esophageal reflux disease without esophagitis | CPT/HCPCS: 94640; 99212 ==

== ENCOUNTER 2024-08-13 12:09 | Outpatient (REF) | payer MEDICARE, SELFPAY | END 2024-08-13 12:10 | disposition home or self-care (01) | LOC: HO.LNP 12:09 | PROVIDERS: Visit Provider Hospitalist | DX: R91.1 Solitary pulmonary nodule (principal); J18.9 Pneumonia, unspecified organism | CPT/HCPCS: 87070; 87116; 87205; 87206 ==

== ENCOUNTER 2024-12-03 08:31 | Outpatient (AMB) | payer MEDICARE, SELFPAY ==
--- OUTSIDE RECORDS SUMMARY | 2024-12-03 08:37 | XMS_ITS | Clinical Summary ---
Author Organization [facility] [address] [facility] Address [address] [place] [address] Phone Care Team Providers Care Senior Software Analyst Name Role Phone Krista Tovar DO Primary Care Pro vider Allergies Active Allergy Reactions Criticality Noted Date Comments Amoxicillin 09/10/2016 Cat Dander 09/04/2022 Dog Dander 09/04/2022 House Dust Mite 09/04/2022 Mold 09/04/2022 Montelukast Dizziness 12/12/2017 Oxycodone 09/10/2016 Sulfa (Sulfonamide Antibiotics) 08/2024 Sulfamethoxazole-Trimethoprim 2016 Medications sodium chloride 0.9 % parenteral solution 40 mL with levalbuterol 1.25 mg/0.5 mL solution for nebulization 50 mg continuous nebulization 0 Refills, Maintenance, 07/19/15 11:18:01 AM EST 6 Active sodium chloride (AFRIN SALINE NASAL MIST NASL) 6 Active budesonide-formot Lenore (Symbicort) 160-4.5 mcg/actuation inhaler Inhale 2 puffs by mouth 2 (two) times a day. 6 Active omeprazole (PriLOSEC) [address] capsule Take 1 capsule (20 mg total) by mouth 1 (one) time each day. Active levalbuterol (XOPENEX HFA) 45 mcg/actuation inhaler Inhale 1 puff by mouth every 4 (four) hours if needed. Active famotidine (PEPCID) 40 mg tablet Take 1 tablet (40 mg total) by mouth. at bedtime. 5 Active estradioL (ESTRACE) 0.01 % (0.1 mg/gram) vaginal cream Insert 2 g into the vagina 1 (one) time each day. 3 Active cetirizine HCl/pseudoephedri ne (ZYRTEC-D ORAL) Take 1 tablet by mouth 1 (one) time each day. 6 Active Active Problems Problem Noted Date Diagnosed Date Osteoporosis 09/04/2024 Female cystocele 09/04/2024 Mild persistent asthma 09/04/2024 Vaginal pessary in situ 09/04/2024 Thyroid nodule 09/23/2023 Hyperparathyroidism, unspecified ([facility] V24) 0 09/09/2022 Vitamin D deficiency, unspecified 09/09/2022 Chronic obstructive pulmonar y disease (COPD) ([facility] V24, [facility] V28) 08/20/2017 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[facility] V24, [facility]/ C V28) 08/20/2017 Asthma 02/24/2017 Bronchiectasis ([facility] V24, [facility] V28) 2016 Gastroesophageal reflux disease 02/22/2017 Seasonal allergic rhinitis 12/07/2016 Irritable bowel syndrome 09/10/2016 Encounters Date Type Department Care Team Description 10/27/2024 1:00 PM EDT Office Visit Pulmonology [facility] [address] [phone] Deborah Koo MD Lung nodule (Primary Dx); SOB (shortness of breath) 10/09/2024 10:45 AM EDT - 10/09/2024 11:59 PM EDT Hospital Encounter [facility] CT Scan [address] [place] [phone] Lung nodule Discharge Disposition: Home or Self Care 09/04/2024 10:30 AM EDT Office Visit Pulmonology [facility] [address] [phone] Deborah oKo MD Lung nodule (Primary Dx); SOB (shortness of breath) from Last 3 Months Surgical History Surgery Date Site/Laterality Comments CHOLECYSTECTOMY PROCEDURE: HISTORICAL CHOLECYSTECTOMY TONSILLECTOMY PROCEDURE: HISTORICAL TONSILLECTOMY Medical History Medical History Date Comments History of Clostridium difficile colitis 017 DX:History of Clostridium difficile colitis Asthma 02/24/2017 DX:Asthma Bronchiectasis ([facility] V24, [facility] V28) 02/22/2017 DX:Bronchiectasis ([facility]) Gastroesophageal reflux disease 02/22/2017 DX:Gastroesophageal reflux disease Irritable bowel syndrome 09/10/2016 DX:Irri table bowel syndrome Seasonal allergic rhinitis 12/07/2016 DX:Se asonal allergic rhinitis Chronic obstructive pulmonar y disease (COPD) ([facility] V24, [facility] V28) 08/20/2017 DX:Chronic obstructi ve pulmonary disease (COPD) ([facility]) 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[facility] V24, [facility] V28) 08/20/2017 DX:Mycobacterium avium compl ex ([facility]) PONV (postoperative nausea and vomiting) Thyroid nodule 09/23/2023 Social History Tobacco Use Types Packs/Day Years Used Date Smoking Tobacco: Never Smokeless Tobacco: Never Tobacco Cessation:Counseling Given: Not Answered Alcohol Use Standard Drinks/Week Comments No 0 (1 standard drink = 0.6 oz pur e alcohol) Interpersonal Safety Answer Date Record ed Physical Abuse 08/26/2024 Verbal Abuse 08/26/2024 Comments No Sex and Gender Information Value Date Recorded Sex Assigned at Female 08/20/2024 12:18 PM EDT Legal Sex Female 1:59 PM EST Gender Identity Female 08/20/2024 12:18 PM EDT Sexual Orientation Straight 08/20/2024 12 :18 PM EDT Obstetrics History Last Filed Vital Signs Vital Sign Reading Time Taken Comments Blood Pressure 137/78 10/27/2024 1:05 PM EDT Pulse 80 10/27/2024 1:05 PM EDT Temperature 36.3 C (97.3 F) 10/27/2024 1:05 PM EDT Respiratory Rate 20 09/04/2024 10:4 1 AM EDT Oxygen Saturation 100% 10/27/2024 1:05 PM EDT Inhaled Oxygen Concentration - - Weight 54.8 kg (120 lb 14.4 oz) 10/27/2024 1:05 PM EDT Height 167.6 cm (5' 6 ) 10/27/2024 1:05 PM EDT Body Mass Index 19.51 10/27/2024 1:05 PM EDT Plan of Treatment Health Maintenance Due Date Last Done Comments Breast Cancer Screening 1950 Zoster Vaccines (1 of 2) 07/31/2001 RSV Immunization Adult Patients (1 - Risk 60-74 years 1-dose series) 2011 Colorectal Cancer Screening: Colonoscopy 04/18/2022 Depression Screening 04/18/2022 Hepatitis C Screening 04/18/2022 Medicare Annual Wellness Visit 04/18/2022 Osteoporosis Screening (Bone Density Screening) 04/18/2022 Social Influencers of Health Screening 04/18/2022 DTaP,Tdap,and Td Vaccines (2 - Td or Tdap) 04/30/2024 04/30/2014 COVID-19 Vaccine ( season) 2024 04/29/2024, 03/28/2023, 03/15/2022, Additional history exists Influenza Vaccine (#1) 2025 , 02/20/2022, 05/23/2021, Additional history exists Falls Risk Assessment 08/26/2025 08/26/2024 Pneumococcal Vaccine: 50+ Years Completed 10/18/2017, 09/11/2016, 02/26/2004 HIB Vaccines Aged Out No longer eligi [...] age to complete this topic Meningococcal B Vaccine Aged Out No l onger eligible based on patient's age to complete this topic RSV Immunization Patients Under 20 months Aged Out No longer eligible based on patient's age to complete this topic Varicella Vaccines Aged Out No longer eligible based on patient's age to complete this topic Procedures Procedure Name Priority Date/Time Associated Diagnosis Comments CT CHEST WO CONTRAST Routine 10/09/2024 10:59 AM EDT Lung nodule from Last 3 Months Results * CT Chest wo Contrast (10/09/2024 10:59 AM EDT) Anatomical Region Laterality Modality Body Computed Tomogra phy 10/09/2024 4:14 PM EDT Impressions 10/09/2024 4:17 PM EDT Resolved left upper lobe consolidation with some residual mucus plugging and associated atelectasis. No acute findings. -------- FINAL REPORT -------- Dictated By: Mayank David Dictated Date: 10/09/2024 16:14 ET Assigned Physician: Mayank David Reviewed and Electronically Signed By: Mayank David Signed Date: 10/09/2024 16:17 ET Workstation ID: [id number] Transcribed By: Self Edit Transcribed Date: 10/09/2024 16:14 ET Narrative 10/09/2024 4:17 PM EDT PROCEDURE: CT CHEST WITHOUT CONTRAST INDICATION: Lung nodule, > 8mm TECHNIQUE: Chest CT without contrast. Multi planar reformats were created and interpreted. The examination was performed utilizing dose reduction techniques.Total DLP 293 mGy/cm COMPARISON: 07/17/2024 FINDINGS: LUNGS/PLEURA: Reticulation/scarring at the apices. There is no consolidation or effusion. Central airways are clear. There is resolution of the previously noted consolidation in the anterior left upper lobe with some residual scarring/volume loss. There is no suspicious pulmonary nodule. There is persistent mucus plugging in the anterior left upper lobe. MEDIASTINUM: The thyroid is enlarged. Coronary artery calcifications. No adenopathy. CHEST WALL: No axillary lymphadenopathy or superficial hematoma. UPPER ABDOMEN:Cholecystectomy clips. BONES: No acute fracture. Scattered degenerative changes seen throughout the bones. Procedure Note Mayank David MD - 10/09/2024 PROCEDURE: CT CHEST WITHOUT CONTRAST INDICATION: Lung nodule, > 8mm TECHNIQUE: Chest CT without contrast. Multi planar reformats were createdand interpreted. The examination was performed utilizing dose reductiontechniques.Total DLP 293 mGy/cm COMPARISON: 07/17/2024 FINDINGS: LUNGS/PLEURA: Reticulation/scarring at the apices. There is noconsolidation or effusion. Central airways are clear. There isresolution of the previously noted consolidation in the anterior leftupper lobe with some residual scarring/volume loss. There is nosuspicious pulmonary nodule. There is persistent mucus plugging in theanterior left upper lobe. MEDIASTINUM: The thyroid is enlarged. Coronary artery calcifications. Noadenopathy. CHEST WALL: No axillary lymphadenopathy or superficial hematoma. UPPER ABDOMEN:Cholecystectomy clips. BONES: No acute fracture. Scattered degenerative changes seen throughoutthe bones. IMPRESSION: Resolved left upper lobe consolidation with some residual mucus pluggingand associated atelectasis. No acute findings. -------- FINAL REPORT -------- Dictated By: Mayank David Dictated Date: 10/09/2024 16:14 ET Assigned Physician: Mayank David Reviewed and Electronically Signed By: Mayank David Signed Date: 10/09/2024 16:17 ET Workstation ID: [id number] Transcribed By: Self Edit Transcribed Date: 10/09/2024 16:14 ET Deborah Koo MD IMG CT PROCEDURES Final Re sult from Last 3 Months Insurance MEDICARE [facility] Advance Directives * Full Code - Default (Latest Code Status on File) Date Activated Date Inactivated Comments 08/26/2024 8:46 AM 08/26/2024 5:16 PM This is order is used when code status has not been discussed with the patient, or code status is otherwise unknown/unconfirmed To update the patient's code status, place a code status order. Do not modify or discontinue any currently active code status orders. Care Teams Senior Software Analyst Relationship Specialty Start Date End Date Krista Tovar DO [facility] [address] [place] [phone] PCP - General 06/27/22
[2024-12-03 08:54] VITALS: BP 120/52; PULSE 69; O2SAT 100; BMI 19.0
--- NOTE | 2024-12-03 08:54 | A.OFFVIS_ITS ---
Vital Signs 12/03/24 08:54 Height 5 ft 6 in Weight 117 lb 15.157 oz BMI 19.0 BP 120/52 L Blood Pressure Location Lt brachial Position Sitting Pulse 69 Pulse Source Pulse Oximeter Pulse Oximetry (%) 100 Oxygen Delivery Method Room Air Intake Visit Reasons: Bronchiectasis Allergies amoxicillin Allergy (Severe, Verified 12/03/24 08:56) C.DIFF sulfamethoxazole (Bactrim) Allergy (Severe, Verified 12/03/24 08:56) Shakin trimethoprim (Bactrim) Allergy (Severe, Verified 12/03/24 08:56) Shaking oxycodone Allergy (Intermediate, Verified 12/03/24 08:56) Loopy HPI Comments Details: The patient is a 74 year-old woman with a known history of asthma, gastroesophageal reflux disease not complaining worsening cough for the last couple weeks. apparently back in the summer she did develop chest discomfort. She was taken to an urgent care where she did have a chest x-ray. and also an EKG. Based on her symptoms she was transferred over to [facility] ED. She was ruled out the patient did well afterwards. Her symptoms subsided she was go back to her baseline. She does take maintenance respiratory medications. She did well until recently when she started developing worsening cough. Congested along with chest tightness. Moderate severity. She continue using her Symbicort but started using her nebulizer therapy at least once a day. His provider partial resolution of the symptoms. Her symptoms were worse at nighttime with heaviness and difficulty sleeping with her cough. The cough she describes is congested and productive. The phlegm is white to off-white in color. Denies any blood. She does get relief from the nebulizer. She also has Mucinex at home. On exam her lungs appeared to some course and prolonged expiratory phase. This is throughout. No clinical evidence of pneumonia at this time. The patient be treated with antibiotics and prednisone and also with [id number] Mucinex. If the patient is not better in the coming days patient is to get blood work, x-ray and also will request a sputum culture. Once the patient is better she will return to the office and undergo pulmonary function studies. 02/13/2024 the patient is here for a pulmonary follow-up visit. The patient overall has been doing better. She did have COVID back in December. After she did develop a postviral bacterial infection and did require some doxycycline. She also took a course of prednisone. She had also started the nebulizer treatments. Now she is back to her baseline. She did have some difficulty with some inhalers that were change. Initially her Symbicort was switched over to a powdered inhaler that she not tolerate. Then she was switched over to Dulera per coverage for mL. She could not tolerate that either. Therefore now she is back on Symbicort and she is doing just fine. She has been able to cut down a little bit because she gets a little tremulous now with Symbicort as well. We did review her last chest x-ray that was back in 02/06/2023. She did have some apical scarring. Will plan to repeat that x-ray when able. Otherwise patient will continue her current respiratory therapy. She continues to walk regularly. She is working on deep breathing exercises. I did encourage her to use her Acapella valve balloon more regularly however. She will follow-up in 6 months or sooner if she develops any worsening issues. 03/30/2024 the patient is here for pulmonary sick visit. She apparently does take about 4 weeks ago started developing a worsening cough. She was evaluated at our [facility] office. She was given a course of doxycycline. She apparently had already been on doxycycline for root canal and then subsequently had a extension of that. She initially felt better but then she started developing worsening cough chest congestion. She has also had a croupy cough moderate severity. She did call the office and we did send her a Medrol pack but the patient was unclear. Therefore she started and then she stopped it. She did restarted yesterday. She denies any wheezing or any chest tightness which is the cough. She did have a chest x-ray which I personally reviewed no acute disease noted. I did review with her. She does have very croupy cough right now appears this is tracheitis. Likely adenovirus that [place] and now superimposed with bacterial infection. Therefore recommended she start azithromycin x5 days. The patient will continue the Medrol Edgar and also will take some Mucinex DM. She will follow-up with regular follow-up visit in August if she is doing okay. Otherwise she will call for an earlier assessment. 06/08/2024 the patient is here for sick visit. She has been coughing now for several months. The cough is seems to be croupy in nature. Feels like she is congested but not a lot of mucus secretions are clearing. In part may be a component of tracheomalacia. She also has evidence of bronchiectasis. The patient has been using her respiratory medications as prescribed. Still does not feel well. She did have a chest x-ray which we personally reviewed without any acute disease. Will request a CT scan at this point since the CT scan will be helpful in determining if there is any evidence of tracheomalacia and also to assess the degree of bronchiectasis. And also to see if there is any other etiologies to explain her persistent cough for the last several months. We tried getting a sputum culture in the office but she was not able to bring 1 up. I did give her a cup so she can take 1 to the nearest lab. In the meantime will start her on azithromycin 3 times a week for chronic bronchitis in addition to helping her with reflux disease. The patient will also start more anti acid therapy for her underlying reflux disease. Also we can work on cough suppressors in order to provide her some relief and minimize the injury to the trachea. The patient will follow-up after her CT scan in 6 weeks. In the meantime she will continue with regimen provided. 07/22/2024 the patient is here for a pulmonary follow-up visit. She continues to have persistent cough chest congestion. The phlegm now is whitish in color. Moderate severity. She had been given a prescription for doxycycline and subsequently to that she was placed on azithromycin 3 times a week. Although no significant improvement. She did undergo a CT scan of the chest which we personally reviewed. Appears to show a masslike density in the lingula and some ground-glass opacities rounded. Could be a masslike consolidation such an infectious process. We were able to get a sputum previously and were still waiting for the finally station but it appears to have a mold. Wonder if it could be Aspergillus. [facility] waiting [facility] to get the final report. In the meantime we did try to get a sputum in the office but she was not able to. Explained to the patient and also her son the this is likely to be infectious process based on the appearance. However, can not rule out a malignant process. Therefore, 1 option would be to treat her empirically with antibiotics and or antifungal therapy. However, the patient has already had history of C diff in the past. And empiric antibiotics sometimes a difficult for her to tolerate specially there strong. The other option is to undergo bronchoscopy to get further cultures in addition to cytology and biopsy. In view of the peripheral location of this masslike density will be best approach with navigational bronchoscopy. If the would like to proceed with a diagnostic intervention I would suggest referral to Interventional Pulmonary at [facility] with can do navigational bronchoscopy for both infectious etiologies and also for malignant etiologies. In the meantime I did give her a sputum cup for her to be able to provide a sputum sample. If she decides to move forward will put a referral in to interventional Pulmonary. Otherwise if she decides to be treated empirically we can always repeat the CT scan in 6-8 weeks. She will talk to her kitchen decide. Seems like she is leaning towards having a procedure. 12/03/2024 the patient is here for pulmonary follow-up visit. Overall she is doing well. The patient did follow-up with Interventional Pulmonary at [facility]. She did undergo a bronchoscopy there and on the day of the procedure she did not have any significant findings which is reassuring. Subsequently CAT scan that she had a a month ago demonstrated interval clearing of the lingular lesion. Overall reassuring. She still has some bronchiectatic changes but minimal. Overall she is doing good. She is happy with acupressure she feels that is helping her. In the meantime she is still complains of nasal congestion and pr oductive cough, whitish in color. Will go ahead and request allergy levels to see if she is a candidate for biologic therapies. In the meantime she will continue with the Symbicort and the rest of the respiratory medications and CPT with the flutter valve. The patient will return in 4-6 months if she has any issues prior to this she will call for an earlier assessment. COUNTS INCLUDE 234 BEDS AT THE [facility] Medical History (Updated 12/03/24 @ 14:39 by Israel Miranda MD) Pulmonary nodule Pneumonia Laryngotracheitis Asthma-COPD overlap syndrome Chest discomfort GERD (gastroesophageal reflux disease) Chronic rhinitis Asthma Bronchiectasis Social History Patient Tobacco Use Status: Never used Tobacco Review of Systems Const Denies chills, Denies excessive sweating, Denies fever(s), Denies headache(s) and Denies night sweats Eyes Denies dry eyes, Denies irritation and Denies itchy eyes ENT Reports Normal hearing present, Denies headache(s), Denies nasal congestion, Denies nasal discharge, Denies post nasal drip and Denies sore throat Card Denies chest pain, Denies chest pain at rest, Denies chest pain with activity, Denies claudication, Denies leg edema, Denies dyspnea, Denies dyspnea on exertion, Denies orthopnea and Denies paroxysmal nocturnal dyspnea Resp Denies excessive phlegm production, Denies pain on inspiration, Denies pain with cough, Denies dyspnea, Denies dyspnea on exertion, Denies stridor and Denies wheezing Musc Denies myalgias Neuro Reports Normal hearing present and Denies headache(s) Endo Denies excessive sweating Yassine/Lymph Denies lymphadenopathy Aller/Immun Denies itchy eyes, Denies seasonal rhinorrhea and Denies wheezing Physical Exam Vital Signs: Last Vital Signs Pulse 69 12/03/24 08:54 BP 120/52 L 12/03/24 08:54 Pulse Ox 100 12/03/24 08:54 Oxygen Delivery Method Room Air 12/03/24 08:54 BMI result Body Mass Index 19.0 Const General: alert HEENT Head: Yes normocephalic Neck Neck: Yes normal visual inspection, Yes full ROM and Yes no lymphadenopathy Chest Chest palpation & inspection: normal inspection of the chest Resp Effort & Inspection: normal respiratory effort Auscultation: no rhonchi, no wheezes and diminished lung sounds Cardio Rate: regular rate Rhythm: regular rhythm Heart sounds: S1 normal heart sound present and S2 normal heart sound present GI Palpation (GI): Soft to palpation and nontender Auscultation: normal bowel sounds Skin General skin exam: rashes and/or lesions noted Neuro Cranial nerves: Yes Normal hearing present Extrem General: Yes no clubbing, cyanosis or edema Assessment & Plan Assessment & Plan (1) Pneumonia: Comment: resolved Code(s): J18.9 - Pneumonia, unspecified organism Category: Medical Qualifiers: Laterality: left Lung location: upper lobe of lung Pneumonia type: due to unspecified organism Qualified Code(s): J18.9 - Pneumonia, unspecified organism (2) Pulmonary nodule: Code(s): R91.1 - Solitary pulmonary nodule Category: Medical (3) Bronchiectasis: Code(s): J47.9 - Bronchiectasis, uncomplicated Category: Medical Qualifiers: Bronchiectasis type: with acute exacerbation Qualified Code(s): J47.1 - Bronchiectasis with (acute) exacerbation (4) Asthma: Code(s): J45.909 - Unspecified asthma, uncomplicated Category: Medical Qualifiers: Asthma complication type: with acute exacerbation Asthma persistence: persistent Asthma severity: moderate Qualified Code(s): J45.41 - Moderate persistent asthma with (acute) exacerbation (5) Chronic rhinitis: Code(s): J31.0 - Chronic rhinitis Category: Medical (6) Asthma-COPD overlap syndrome: Code(s): J44.9 - Chronic obstructive pulmonary disease, unspecified Category: Medical Plan continue Symbicort BID Budesonide neb Continue Xopenex as needed sputum culture CPT with acapella valve Bloodwork Maybe a good candidate for Biologic therapy Follow-up in 4-6 months Orders: Orders Complete Blood Count Auto Diff Today J45.41 - Moderate persistent asthma with (acute) exacerbation, J47.1 - Bronchiectasis with (acute) exacerbation Immunoglobulin E Today J45.41 - Moderate persistent asthma with (acute) exacerbation, J47.1 - Bronchiectasis with (acute) exacerbation Immunoglobulins,IgG IgA IgM Today J45.41 - Moderate persistent asthma with (acute) exacerbation, J47.1 - Bronchiectasis with (acute) exacerbation Erythrocyte Sedimentation Rate Today J45.41 - Moderate persistent asthma with (acute) exacerbation, J47.1 - Bronchiectasis with (acute) exacerbation Medications: Refilled levalbuterol tartrate 45 mcg/actuation 2 puffs inhalation Q6H PRN 15 grams 11RF shortness of breath or wheezing 30 days Coding Level of Care Code Est Pt Level 4 (48442) Complex EM visit Add On G2211 Diagnoses Pneumonia of left upper lobe due to infectious organism J18.9 Laterality: left Lung location: upper lobe of lung Pneumonia type: due to unspecified organism Pulmonary nodule R91.1 Bronchiectasis with acute exacerbation J47.1 Bronchiectasis type: with acute exacerbation Moderate persistent asthma with acute exacerbation J45.41 Asthma complication type: with acute exacerbation Asthma persistence: persistent Asthma severity: moderate Chronic rhinitis J31.0 Asthma-COPD overlap syndrome J44.9 Time Spent (min) 17
== END 2024-12-03 09:23 | disposition home or self-care (01) ==
LOC: HO.HPS 08:32
PROVIDERS: PCP Internal Medicine; Visit Provider Hospitalist
DX: J18.9 Pneumonia, unspecified organism (principal); R91.1 Solitary pulmonary nodule; J47.1 Bronchiectasis with (acute) exacerbation; J45.41 Moderate persistent asthma with (acute) exacerbation; J31.0 Chronic rhinitis; J44.9 Chronic obstructive pulmonary disease, unspecified
CPT/HCPCS: 99214; G2211

== ENCOUNTER → 2024-12-03 08:31 | Outpatient (BNVA) | payer MEDICARE, SELFPAY | PROVIDERS: PCP Internal Medicine; Visit Provider Hospitalist | DX: R91.1 Solitary pulmonary nodule (principal); J47.1 Bronchiectasis with (acute) exacerbation; J18.9 Pneumonia, unspecified organism; J31.0 Chronic rhinitis; J44.89 Other specified chronic obstructive pulmonary disease; J45.41 Moderate persistent asthma with (acute) exacerbation | CPT/HCPCS: 99212 ==